=== PATIENT | female | born 1960 | race Caucasian/White ===

== ENCOUNTER 2020-04-16 13:49 | Observation (INO) | payer OTHER ==
[2020-04-16] MEDS ORDERED: ASPIRIN EC 81 MG TAB PO ONE (14:16)
[2020-04-16] MEDS ORDERED: METHYLPREDNISOLONE 125 MG INJ ONE (14:16)
[2020-04-16] MEDS ORDERED: NITROGLYCERIN 1 GM PKT TD ONE ×2 (14:16→14:32)
[2020-04-16 14:26] LABS: Basophils % 0.4 % (0-1.3); Hematocrit 37.4 % (36.0-45.0); Lymphocytes % 13.6 % (15.3-44.8); MPV 6.4 fL (7.6-11.3); RBC Red Blood Cell Count 5.05 M/uL (3.86-4.86)
[2020-04-16 14:46] LABS: ALT/SGPT 72 U/L (12-78); AST/SGOT 54 U/L (15-37); Albumin 3.5 g/dL (3.4-5.0); Alkaline Phosphatase 238 U/L (45-117); BUN Blood Urea Nitrogen 15 mg/dL (7-18); Bicarbonate 29 mmol/L (21-32); Bilirubin Direct < 0.1 mg/dL (0-0.2); Bilirubin Total 0.2 mg/dL (0.2-1.0); Glucose Level 112 mg/dL (74-106); NT PRO-BNP 59 pg/mL (<125); Potassium 3.6 mmol/L (3.5-5.1); Sodium Level 138 mmol/L (136-145); Troponin (Emerg Dept Use Only) < 0.02 ng/mL (0.0-0.045)
--- NOTE | 2020-04-16 15:10 | RAD REPORT ---
EXAM DESCRIPTION: RAD - Chest Single View - 04/16/2020 3:01 pm CLINICAL HISTORY: CHEST PAIN Chest pain. COMPARISON: No comparisons FINDINGS: Portable technique limits examination quality. The lungs are grossly clear. The heart is normal in size. No displaced fractures. IMPRESSION: No acute intrathoracic process suspected.
[2020-04-16 15:23] LABS: Protime INR 0.87
[2020-04-16] MEDS ORDERED: ACETAMINOPHEN 500 MG TAB ONE (15:38)
[2020-04-16 16:07] LABS: SARS-COV-2 RT PCR POSITIVE (NEGATIVE)
--- NOTE | 2020-04-16 16:39 | ER ---
Nurse's Notes [facility] Name: Pattie Doty Age: 59 yrs Sex: Female : 1960 Arrival Date: 04/16/2020 Time: 13:54 Bed 26 Private MD: Diagnosis: Chest pain, unspecified;Coronavirus infection, unspecified Presentation: 04/16 13:55 Acuity: SANJANA 1 ca1 Historical: - Allergies: 14:44 No Known Allergies; iw Screenin:44 Abuse screen: Denies threats or abuse. Denies injuries from another. Nutritional iw screening: No deficits noted. Tuberculosis screening: No symptoms or risk factors identified. Assessment: 13:55 Reassessment: placed in room. Carmen, RN, Zoya, RN, Ynes RN at bedside. junior Hooks at bedside. 17:22 Reassessment: pt SpO2 dropped to 88% on RA, on exertion, up to 98% after she calmed iw down, placed on 2 L NC. 19:08 Reassessment: Patient and/or family updated on plan of care and expected duration. Pain ll2 level reassessed. Patient is alert, oriented x 3, equal unlabored respirations, skin warm/dry/pink. Vital Signs: 14:22 BP 163 / 86; Pulse 127; Resp 28 S; Pulse Ox 100% on 4 lpm NC; iw 14:43 BP 125 / 72; Pulse 120; Resp 26; Pulse Ox 98% on 4 lpm NC; iw 17:00 Pulse Ox 88% on R/A; iw 17:44 BP 148 / 86; Pulse 120; Resp 24 S; Temp 98.9; Pulse Ox 99% on 2 lpm NC; iw ED Course: 13:50 Initial lab(s) drawn, by ks, sent to lab. Inserted saline lock: 20 gauge in right iw forearm, using aseptic technique. 13:54 Patient arrived in ED. ag5 13:55 Triage completed. ca1 13:59 Manav Cortez PA is PHCP. cp 13:59 Randall Ramirez MD is Attending Physician. cp 14:04 Zoya Talavera, RN is Primary Nurse. iw 15:01 XRAY Chest (1 view) In Process Unspecified. EDMS 16:38 Oscar Edge is Hospitalizing Provider. cp 16:57 CT Chest For PE Angio In Process Unspecified. EDPR 04/17 06:40 Primary Nurse role handed off by Zoya Talavera RN 08:17 Repeat lab(s) drawn. by ks, sent to lab. [facility] Administered Medications: 04/16 14:21 Drug: Nitro-Bid Ointment 2 % 1 inches Route: Transdermal; Site: anterior chest wall; iw 16:08 CANCELLED (Physician Discretion): morphine 2 mg IVP once; RASS on ADMIN: Combtv4, Very cp Agttd3, Agttd2, Rstlss1, AlertClm0, Drwsy-1, Lt Sdtn-2, Mod Sdtn-3, Dp Sdtn-4, UnArsble-5 17:00 Drug: morphine 2 mg Route: IVP; Site: right forearm; iw 17:43 CANCELLED (Physician Discretion): NS 0.9% 500 ml IV at bolus once cp 18:53 Drug: LevaQUIN 750 mg Volume: 150 ml; Route: IVPB; Infused Over: 90 mins; Site: right iw forearm; 18:53 Drug: NS 0.9% 500 ml Route: IV; Rate: bolus; Site: right forearm; iw Outcome: 16:39 Decision to Hospitalize by Provider. cp 04/17 15:25 Patient left the ED. eb Signatures: Dispatcher [employer] EDPR Zoya Talavera, RN RN Manav Calhoun PA PA cp Herrera, Deanna [facility] Sharita Berry Cheryl, RN RN ca1 Gaskin, Ajare Leah Handley RN RN ll2
--- NOTE | 2020-04-16 16:40 | EDPHYS ---
Physician Documentation [facility] [place], [place] Name: Pattie Doty Age: 59 yrs Sex: Female : 1960 Arrival Date: 04/16/2020 Time: 13:54 Bed 26 Private MD: ED Physician Randall Ramirez HPI: 04/16 14:15 This 59 yrs old Female presents to ER via Unassigned with complaints of cp Shortness Of Breath, Chest Pain. 14:15 The patient has shortness of breath at rest. Onset: The symptoms/episode began/occurred cp 1 week(s) ago. Duration: The symptoms are continuous, and are steadily getting worse. Associated signs and symptoms: Pertinent positives: chest pain, Pertinent negatives: productive cough, fever. Historical: - Allergies: 14:44 No Known Allergies; iw ROS: 14:20 Constitutional: Negative for body aches, chills, fever, poor PO intake. cp 14:20 Eyes: Negative for injury, pain, redness, and discharge. cp 14:20 ENT: Negative for ear pain, sore throat, difficulty swallowing, difficulty handling secretions. 14:20 Cardiovascular: Positive for chest pain, Negative for edema. 14:20 Respiratory: Positive for cough, "sounds productive", shortness of breath, at rest. 14:20 Abdomen/GI: Negative for abdominal pain, vomiting, diarrhea, constipation. 14:20 Back: Negative for radiated pain. 14:20 Neuro: Negative for altered mental status, headache, syncope, weakness. 14:20 All other systems are negative. Exam: 14:05 ECG was reviewed by the Attending Physician. cp 14:25 Constitutional: The patient appears alert, awake, non-diaphoretic, non-toxic, well cp developed, well nourished, in obvious distress, moderately distressed. 14:25 Head/Face: Normocephalic, atraumatic. cp 14:25 Eyes: Periorbital structures: appear normal, Pupils: equal, round, and reactive to light and accomodation, Extraocular movements: intact throughout, Conjunctiva: normal, no exudate, no injection, Sclera: no appreciated abnormality, Lids and lashes: appear normal, bilaterally. 14:25 ENT: External ear(s): are unremarkable, Nose: is normal, Mouth: Lips: moist, Oral mucosa: moist, Posterior pharynx: Airway: no evidence of obstruction, patent, swelling, is not appreciated, erythema, is not appreciated, exudate, is not appreciated. 14:25 Neck: ROM/movement: is normal, is supple, no meningismus, no nuchal rigidity. 14:25 Chest/axilla: Inspection: normal, Palpation: is normal, no crepitus, no tenderness. 14:25 Cardiovascular: Rate: tachycardic, Rhythm: regular, Pulses: Pulses are 2+ in right radial artery and left radial artery. Edema: is not appreciated, JVD: is not appreciated. 14:25 Respiratory: moderate respiratory distress is noted, Respirations: shallow respirations, that is moderate, Breath sounds: decreased breath sounds, that are mild, throughout, wheezing: is not appreciated. 14:25 Abdomen/GI: Inspection: abdomen appears normal, Bowel sounds: active, all quadrants, Palpation: abdomen is soft and non-tender, in all quadrants. 14:25 Back: pain, is absent, ROM is normal. 14:25 Neuro: Orientation: to person, place \\T\\ time. Mentation: is normal, Motor: moves all fours, strength is normal. Vital Signs: 14:22 BP 163 / 86; Pulse 127; Resp 28 S; Pulse Ox 100% on 4 lpm NC; iw 14:43 BP 125 / 72; Pulse 120; Resp 26; Pulse Ox 98% on 4 lpm NC; iw 17:00 Pulse Ox 88% on R/A; iw 17:44 BP 148 / 86; Pulse 120; Resp 24 S; Temp 98.9; Pulse Ox 99% on 2 lpm NC; iw MDM: 14:06 Patient medically screened. cp 16:25 Data reviewed: vital signs, nurses notes, lab test result(s), EKG, radiologic studies, cp plain films, and as a result, I will admit patient. 16:25 Counseling: I had a detailed discussion with the patient and/or guardian regarding: the cp historical points, exam findings, and any diagnostic results supporting the discharge/admit diagnosis, lab results, radiology results. Physician consultation: Oscar Edge was called at 16:25, was contacted at 16:25, regarding admission, to the telemetry unit. patient's condition. 04/16 14:09 Order name: Basic Metabolic Panel; Complete Time: 15:10 iw 04/16 14:09 Order name: CBC with Diff; Complete Time: 15:10 04/16 15:10 Interpretation: Normal except: RBC 5.05; HGB 11.9; MCV 74.1; MCH 23.7; MCHC 31.9; RDW cp 17.2; MPV 6.4; HONG% 79.8; LYM% 13.6. 04/16 14:09 Order name: LFT's; Complete Time: 15:10 04/16 14:09 Order name: Magnesium; Complete Time: 15:10 04/16 14:09 Order name: NT PRO-BNP; Complete Time: 15:10 04/16 14:09 Order name: PT-INR; Complete Time: 15:45 04/16 14:09 Order name: Troponin (emerg Dept Use Only); Complete Time: 15:10 04/16 14:15 Order name: Basic Metabolic Panel 04/16 14:15 Order name: CBC with Diff 04/16 14:16 Order name: Lactate; Complete Time: 17:41 04/16 14:16 Order name: Procalcitonin; Complete Time: 15:45 04/16 14:16 Order name: Blood Culture Adult (2) 04/16 14:48 Order name: CORONAVIRUS (COVID-19) : Document "Date of Symptom Onset" if Symptomatic. em1 04/16 16:07 Order name: COVID-19/FLU A+B; Complete Time: 16:16 EDAR 04/16 16:23 Order name: CRP cp 04/16 16:23 Order name: D-Dimer cp 04/16 16:23 Order name: Ferritin; Complete Time: 20:25 cp 04/16 16:23 Order name: C-Reactive Protein; Complete Time: 20:25 EDAR 04/16 21:00 Order name: Lactate Sepsis 2 HR Follow-up EDAR 04/17 08:44 Order name: CBC with Automated Diff EDAR 04/16 14:09 Order name: XRAY Chest (1 view); Complete Time: 15:45 04/16 14:09 Order name: EKG; Complete Time: 14:10 04/16 14:09 Order name: Cardiac monitoring; Complete Time: 14:22 04/16 14:09 Order name: EKG - Nurse/Tech; Complete Time: 14:22 04/16 14:09 Order name: IV Saline Lock; Complete Time: 14:22 iw 04/16 14:09 Order name: Labs collected and sent; Complete Time: 15:04 iw 04/16 14:09 Order name: O2 Per Protocol; Complete Time: 14:22 iw 04/16 14:09 Order name: O2 Sat Monitoring; Complete Time: 14:22 iw 04/16 14:15 Order name: EKG; Complete Time: 14:16 cp 04/16 14:15 Order name: Cardiac monitoring; Complete Time: 15:04 cp 04/16 14:15 Order name: EKG - Nurse/Tech; Complete Time: 14:21 04/16 14:15 Order name: IV Saline Lock; Complete Time: 14:21 04/16 14:15 Order name: Labs collected and sent; Complete Time: 14: 04/16 14:15 Order name: O2 Per Protocol; Complete Time: 14:22 04/16 14:15 Order name: O2 Sat Monitoring; Complete Time: 14: 04/16 16:23 Order name: CT Chest For PE Angio; Complete Time: 17:41 04/17 09:00 Order name: Basic Metabolic Panel EDAR 04/17 09:00 Order name: Troponin I EDAR 04/17 09:00 Order name: Lipid Profile EDAR 04/17 09:05 Order name: CBC Smear Scan EDAR 04/17 11:48 Order name: Glucose, Ancillary Testing EDMS EC:05 Rate is 123 beats/min. Rhythm is regular. [place] interval is normal. QRS interval is cp normal. QT interval is normal. T waves are Inverted in leads I, aVL. Interpreted by me. Reviewed by me. Administered Medications: 14:21 Drug: Nitro-Bid Ointment 2 % 1 inches Route: Transdermal; Site: anterior chest wall; iw 16:08 CANCELLED (Physician Discretion): morphine 2 mg IVP once; RASS on ADMIN: Combtv4, Very cp Agttd3, Agttd2, Rstlss1, AlertClm0, Drwsy-1, Lt Sdtn-2, Mod Sdtn-3, Dp Sdtn-4, UnArsble-5 17:00 Drug: morphine 2 mg Route: IVP; Site: right forearm; iw 17:43 CANCELLED (Physician Discretion): NS 0.9% 500 ml IV at bolus once cp 18:53 Drug: LevaQUIN 750 mg Volume: 150 ml; Route: IVPB; Infused Over: 90 mins; Site: right iw forearm; 18:53 Drug: NS 0.9% 500 ml Route: IV; Rate: bolus; Site: right forearm; iw Disposition: 04/17 07:02 Co-signature as Attending Physician, Randall Ramirez MD I agree with the assessment and kdr plan of care. Disposition: 04/16/20 16:39 Hospitalization ordered by Oscar Edge for Inpatient Admission. Preliminary diagnosis are Chest pain, unspecified, Coronavirus infection, unspecified. - Bed requested for [facility] ER HOLD. - Status is Inpatient Admission. eb - Condition is Stable. - Problem is new. - Symptoms have improved. Signatures: Dispatcher [employer] EDAR Meseret Douglass RN RN Randall Ramirez MD MD [facility] Zoya Talavera RN RN Phil Islas PA PA [id number] Page, Corey, PA PA cp Botello, Elizabeth Corrections: (The following items were deleted from the chart) 04/16 14:38 14:16 Chest Single View+RAD.RAD.BRZ ordered. EDMS EDMS 15:10 14:49 CORONAVIRUS ordered. EDMS EDMS 16:08 16:07 morphine 2 mg IVP once; RASS on ADMIN: Combtv4, Very Agttd3, Agttd2, Rstlss1, cp AlertClm0, Drwsy-1, Lt Sdtn-2, Mod Sdtn-3, Dp Sdtn-4, UnArsble-5 ordered. cp 16:17 14:15 Basic Metabolic Panel ordered. EDMS EDMS 16:17 14:16 HEPATIC FUNCTION+C.LAB.BRZ ordered. EDMS EDMS 16:17 14:16 MAGNESIUM+C.LAB.BRZ ordered. EDMS EDMS 16:17 14:16 PROBNP+C.LAB.BRZ ordered. EDMS EDMS 16:17 14:16 TROPONIN (EMERG DEPT USE ONLY)+C.LAB.BRZ ordered. EDMS EDMS 16:18 14:15 CBC with Automated Diff ordered. EDMS EDMS 17:12 14:16 PROTIME (+INR)+COAG.LAB.BRZ ordered. EDMS EDMS 17:13 14:16 Influenza Screen (A \\T\\ B)+BA.LAB.BRZ ordered. EDMS EDMS 17:43 17:43 NS 0.9% 500 ml IV at bolus once ordered. cp cp 19:50 16:39 Hospitalization Ordered by Oscar Edge for Inpatient Admission. Preliminary dw diagnosis is Chest pain, unspecified; Coronavirus infection, unspecified. Bed requested for Telemetry/MedSurg (Inpatient). Status is Inpatient Admission. Condition is Stable. Problem is new. Symptoms have improved. cp 04/17 15:25 04/16 19:50 04/16/2020 16:39 Hospitalization Ordered by Oscar Edge for Inpatient eb Admission. Preliminary diagnosis is Chest pain, unspecified; Coronavirus infection, unspecified. Bed requested for [facility] ER HOLD. Status is Inpatient Admission. Condition is Stable. Problem is new. Symptoms have improved. dw
--- NOTE | 2020-04-16 17:05 | RAD REPORT ---
EXAM DESCRIPTION: CT - Chest For Pe Angio - 04/16/2020 4:57 pm CLINICAL HISTORY: Chest pain. CHEST PAIN COMPARISON: No comparisons TECHNIQUE: CT angiogram of the pulmonary arteries was performed with MIP. All CT scans are performed using dose optimization technique as appropriate and may include automated exposure control or mA/KV adjustment according to patient size. FINDINGS: No evidence of pulmonary thromboembolism. No acute aortic finding demonstrated. The lungs are mildly emphysematous but clear. No significant pericardial or pleural fluid. No concerning bony finding. IMPRESSION: No evidence of pulmonary thromboembolism. Mild COPD.
[2020-04-16] MEDS ORDERED: MORPHINE 2 MG/ML SYR ONE (17:17)
[2020-04-16] MEDS ORDERED: NA CHLORIDE 0.9% 1,000 ML ONE (17:18)
--- NOTE | 2020-04-16 17:24 | P.HP ---
Certification for Inpatient Patient admitted to: Observation With expected LOS: <2 Midnights Practitioner: I am a practitioner with admitting privileges, knowledge of patient current condition, hospital course, and medical plan of care. Services: Services provided to patient in accordance with Admission requirements found in Title 42 Section 412.3 of the Code of Federal Regulations Patient History Date of Service: 04/16/20 Reason for admission: Chest pain and shortness of breath History of Present Illness: 59-year-old woman presented to the emergency department complaining of shortness of breath and chest pain. Patient described in anterior chest, onset at rest, worse with breathing. She also report intermittent nonproductive cough. Patient gives a history of coronary artery disease status post multiple stents. She denied any fever or sore throat or nasal congestion. The EKG in the emergency department demonstrated sinus tachycardia and nonspecific ST-T changes. She tested positive for COVID 19. Chest x-ray and CTA thorax were all unremarkable, no infiltrate. CTA showed no pulmonary embolus demonstrated some evidence of mild COPD. Patient was put on 3 L of oxygen by nasal cannula. She is was 100% on 4 L of oxygen in the ED. Room air saturation not checked. Patient is hospitalized for chest pain rule out. - Past Medical/Surgical History -: Coronary artery disease -: COPD -: Obesity -: Laparotomy -: Right knee surgeon - Family History Father -: Heart disease - Social History Smoking Status: Former smoker Alcohol use: No CD- Drugs: No Place of Residence: Home Review of Systems Other: Except as documented, all other systems reviewed and negative. Physical Examination - Physical Exam General: Alert, Mild distress, Obese HEENT: Mucous membr. moist/pink, EOMI, Sclerae nonicteric Neck: Supple, JVD not distended Respiratory: Normal air movement, Expiratory wheezes (Mild bilateral expiratory wheezes.) Cardiovascular: No edema, Normal S1 S2, Other (Tachycardia) Capillary refill: <2 Seconds Gastrointestinal: Soft and benign, Non-distended, No tenderness Musculoskeletal: No swelling, No tenderness Integumentary: No rashes, No cyanosis Neurological: Normal strength at 5/5 x4 extr, Cranial nerves 3-12 intact - Studies Laboratory Data (last 24 hrs) 04/16/20 14:15: PT Cancelled, INR Cancelled 04/16/20 14:15: WBC Cancelled, Hgb Cancelled, Hct Cancelled, Plt Count Cancelled 04/16/20 14:15: Sodium Cancelled, Potassium Cancelled, BUN Cancelled, Creatinine Cancelled, Glucose Cancelled, Magnesium Cancelled, Total Bilirubin Cancelled, AST Cancelled, ALT Cancelled, Alkaline Phosphatase Cancelled 04/16/20 14:13: PT 10.3, INR 0.87 04/16/20 14:13: WBC 7.00, Hgb 11.9 L, Hct 37.4, Plt Count 390 04/16/20 14:13: Sodium 138, Potassium 3.6, BUN 15, Creatinine 0.80, Glucose 112 H, Magnesium 2.0, Total Bilirubin 0.2, AST 54 H, ALT 72, Alkaline Phosphatase 238 H Assessment and Plan - Problems (Diagnosis) (1) Chest pain Current Visit: Yes Status: Acute (2) COPD with exacerbation Current Visit: Yes Status: Acute (3) Obesity Current Visit: Yes Status: Acute - Plan Place under observation. Trend troponin. Aspirin and Plavix. Vitamin-D, vitamin-C and zinc supplementation for COVID 19. IV steroids for COPD exacerbation. Bronchodilators. Collect validate and reconcile home medications. Check room air oxygen saturation. Supplemental oxygen as needed. - Advance Directives Does patient have a Living Will: No Does patient have a Durable POA for Healthcare: No
[2020-04-16] MEDS ORDERED: NA CHLORIDE 0.9% 500 ML ONE (18:54)
[2020-04-16] MEDS ORDERED: Levofloxacin 750mg IV 750 MG/150 ML BAG IV ONE (18:54)
[2020-04-16 20:17] LABS: C-Reactive Protein 29.6 mg/L (<3.00); Ferritin 10.3 ng/mL (8-388)
[2020-04-17] MEDS: INSULIN -REGULAR HUMAN 50 UNIT/0.5 ML ML SQ SCH ×2 (07:52→11:30)
[2020-04-17] MEDS ORDERED: MORPHINE 4 MG/ML SYR IV PRN (07:52)
[2020-04-17] MEDS ORDERED: NITROGLYCERIN 0.4 MG/TAB SL PRN (07:52)
[2020-04-17 08:28] VITALS: BMI 33.6
[2020-04-17 08:40] LABS: Absolute Lymphocytes (CBC) 0.5 K/uL (0.7-4.9); Basophils % 0.1 % (0-1.3); Hematocrit 33.2 % (36.0-45.0); MPV 6.6 fL (7.6-11.3); RBC Red Blood Cell Count 4.47 M/uL (3.86-4.86)
[2020-04-17 09:00] LABS: BUN Blood Urea Nitrogen 18 mg/dL (7-18); Bicarbonate 24 mmol/L (21-32); Glucose Level 223 mg/dL (74-106); HDL Cholesterol 68 mg/dL (40-60); LDL Cholesterol, Calculated 117 (<130); Potassium 3.7 mmol/L (3.5-5.1); Sodium Level 139 mmol/L (136-145); Troponin I < 0.02 ng/mL (0.0-0.045)
[2020-04-17] MEDS ORDERED: ENOXAPARIN 40 MG/0.4 ML SQ SCH (09:00)
[2020-04-17] MEDS ORDERED: VITAMIN D 5,000 UNIT CAP PO SCH (09:00)
[2020-04-17] MEDS ORDERED: ASPIRIN EC 81 MG TAB PO SCH (09:00)
[2020-04-17] MEDS ORDERED: ZINC SULFATE 220 MG CAP PO SCH (09:00)
[2020-04-17] MEDS: ASCORBIC ACID 500 MG TABLET PO SCH ×2 (09:00→09:01)
[2020-04-17 09:05] LABS: Blood Morphology Comment NOT SEEN (NOT SEEN); Platelet Estimate ADEQ; White Blood Cell Scan OK (OK)
[2020-04-17] MEDS ORDERED: ALBUTEROL INHALER 60 PUFF/8 GM IH PRN (09:12)
[2020-04-17] MEDS ORDERED: ASPIRIN 81 MG CHEWABLE TABLET ONE (09:15)
[2020-04-17] MEDS ORDERED: ENOXAPARIN 40 MG/0.4 ML SQ ONE (09:16)
[2020-04-17] MEDS ORDERED: ZINC SULFATE 220 MG CAP ONE (09:16)
[2020-04-17] MEDS ORDERED: ASPIRIN EC 81 MG TAB PO ONE (09:16)
[2020-04-17] MEDS ORDERED: ASCORBIC ACID 500 MG TABLET ONE (09:16)
[2020-04-17] MEDS ORDERED: VITAMIN D 1000 UNIT TAB ONE (09:16)
[2020-04-17] MEDS: IPRATROPIUM 200 PUFF/12.9 GM INH IH SCH ×2 (10:32→12:50)
--- NOTE | 2020-04-17 11:06 | EKG ---
Test Date: 2020-04-16 Test Time: 13:57:22 Solution Lead: ELSI MEASUREMENT RESULTS: Intervals: Rate: 123 ID: [id number] QRSD: 86 QT: 328 QTc: 469 [place]: P: 80 ID: [id number] QRS: 46 T: 97 INTERPRETIVE STATEMENTS: Sinus tachycardia Nonspecific ST abnormality Abnormal ECG No previous ECG available for comparison Electronically Signed On 04-17-20 11:05:07 PATTERN SCRATCHER by Hao Olivera
[2020-04-17] MEDS ORDERED: INSULIN -REGULAR HUMAN 50 UNIT/0.5 ML ML ONE (12:45)
--- NOTE | 2020-04-17 13:13 | P.DS ---
Admission Date: 04/16/20 Discharge Date: 04/17/20 Disposition: ROUTINE DISCHARGE Discharge Condition: FAIR Reason for Admission: Chest pain and shortness of breath - Problems (1) Chest pain Current Visit: Yes Status: Acute (2) COPD with exacerbation Current Visit: Yes Status: Acute (3) Obesity Current Visit: Yes Status: Acute (4) COVID-19 virus infection Current Visit: Yes Status: Acute Brief History of Present Illness: 59-year-old woman presented to the emergency department complaining of shortness of breath and chest pain. Patient described in anterior chest, onset at rest, worse with breathing. She also report intermittent nonproductive cough. Patient gives a history of coronary artery disease status post multiple stents. She denied any fever or sore throat or nasal congestion. The EKG in the emergency department demonstrated sinus tachycardia and nonspecific ST-T changes. She tested positive for COVID 19. Chest x-ray and CTA thorax were all unremarkable, no infiltrate. CTA showed no pulmonary embolus demonstrated some evidence of mild COPD. Patient was put on 3 L of oxygen by nasal cannula. She is was 100% on 4 L of oxygen in the ED. Room air saturation not checked. Patient is hospitalized for chest pain rule out. Hospital Course: Patient was placed under observation. Her troponin trended negative. Patient was seen COPD exacerbation which was treated with IV steroid, scheduled inhalers. Of note patient tested positive for COVID 19. Her chest x-ray did not show any infiltrate. She has chronic respiratory failure on home oxygen. Patient was maintained on 2 to 3 L during the hospital stay. ACS has been ruled out. Patient is deemed clinically stable for discharge. She is prescribed vitamin-D, vitamin-C and zinc supplementation. She will follow with Dr. Arriola within 1 week. General: Alert, In no apparent distress, Oriented x3 HEENT: Mucous membr. moist/pink Respiratory: Diminished Cardiovascular: Regular rate/rhythm, Normal S1 S2 Gastrointestinal: Soft and benign, Non-distended Musculoskeletal: No swelling Integumentary: No rashes Neurological: Normal strength at 5/5 x4 extr Laboratory Data at Discharge: WBC 6.40 K/uL (4.3-10.9) 04/17/20 08:17 Hgb 10.5 g/dL (12.0-15.0) L 04/17/20 08:17 Hct 33.2 % (36.0-45.0) L 04/17/20 08:17 Plt Count 384 K/uL (152-406) 04/17/20 08:17 PT Cancelled 04/16/20 14:15 INR Cancelled 04/16/20 14:15 Sodium 139 mmol/L (136-145) 04/17/20 08:17 Potassium 3.7 mmol/L (3.5-5.1) 04/17/20 08:17 BUN 18 mg/dL (7-18) 04/17/20 08:17 Creatinine 1.04 mg/dL (0.55-1.3) 04/17/20 08:17 Glucose 223 mg/dL (74-106) H 04/17/20 08:17 Magnesium Cancelled 04/16/20 14:15 Total Bilirubin Cancelled 04/16/20 14:15 AST Cancelled 04/16/20 14:15 ALT Cancelled 04/16/20 14:15 Alkaline Phosphatase Cancelled 04/16/20 14:15 Troponin I < 0.02 ng/mL (0.0-0.045) 04/17/20 08:17 Triglycerides 70 mg/dL (<150) 04/17/20 08:17 Cholesterol 199 mg/dL (<200) 04/17/20 08:17 HDL Cholesterol 68 mg/dL (40-60) H 04/17/20 08:17 Cholesterol/HDL Ratio 2.93 04/17/20 08:17 Home Medications: Albuterol Neb [Proventil 0.083% Neb Soln] 2.5 mg IH TID 04/17/20 Amitriptyline [Elavil*] 1 tab PO DAILY 04/17/20 Amlodipine [Norvasc*] 1 tab PO DAILY 04/17/20 Ascorbic Acid [Vitamin C*] 2,000 mg PO BID #120 tablet 04/17/20 Atorvastatin Calcium [Lipitor*] 20 mg PO DAILY 04/17/20 Clopidogrel Bisulfate [Plavix*] 1 tab PO DAILY 04/17/20 Dicyclomine [Bentyl*] 1 tab PO DAILY 04/17/20 Isosorbide Mononitrate [Isosorbide Mononitrate ER] 1 tab PO DAILY 04/17/20 Losartan/Hydrochlorothiazide [Losartan-Hctz 100-25 mg Tab] 1 tab PO DAILY 04/17/20 Pantoprazole Sodium [Protonix] 1 tab PO DAILY 04/17/20 Zinc Sulfate [Zinc Sulfate*] 220 mg PO DAILY #30 cap 04/17/20 New Medications: Ascorbic Acid [Vitamin C*] 2,000 mg PO BID #120 tablet Zinc Sulfate [Zinc Sulfate*] 220 mg PO DAILY #30 cap Followup: Mo Haywood MD [ACTIVE - CAN ADMIT] - 1 Week Jered Delgado DO [Primary Care Provider] -
[2020-04-17 14:23] VITALS: O2SAT 98
[2020-04-17 15:04] VITALS: BP 154/92; TEMP 97.7
[2020-04-17] MEDS ORDERED: DULERA 100/5 (MOMETASONE/FORMOTEROL) INHALER IH SCH (21:00)
== END 2020-04-17 15:20 | disposition home or self-care (01) ==
LOC: ER 13:49 → ERHOLD 16:56
PROVIDERS: ADMIT Internal Medicine; ATTEND Internal Medicine
DX: R07.9 Chest pain, unspecified (principal); U07.1 COVID-19; J44.1 Chronic obstructive pulmonary disease with (acute) exacerbation; J96.10 Chronic respiratory failure, unspecified whether with hypoxia or hypercapnia; I25.10 Atherosclerotic heart disease of native coronary artery without angina pectoris; E66.9 Obesity, unspecified; Z68.33 Body mass index [BMI] 33.0-33.9, adult; Z87.891 Personal history of nicotine dependence; Z95.5 Presence of coronary angioplasty implant and graft; Z99.81 Dependence on supplemental oxygen; Z79.02 Long term (current) use of antithrombotics/antiplatelets; Z82.49 Family history of ischemic heart disease and other diseases of the circulatory system
CPT/HCPCS: 93005; 87040 ×2; 85025 ×2; 80048 ×2; 36415; 83735; 85610; 80061; 82947; 85379; 80076; 83605 ×2; 84484 ×2; 82728; 84145; 83880; 0240U; 86140; 71275; 71045; 96375; 96374; 99291; 99292; Q9967; J1650; J2270; J7606; J7040; J7030; J2930

== ENCOUNTER 2020-04-21 04:47 | Inpatient (IN) | payer OTHER ==
[2020-04-21] MEDS ORDERED: ALBUTEROL INHALER 60 PUFF/8 GM IH ONE (05:19)
[2020-04-21] MEDS ORDERED: METHYLPREDNISOLONE 125 MG INJ ONE (05:19)
[2020-04-21 05:20] LABS: Absolute Lymphocytes (CBC) 1.3 K/uL (0.7-4.9); Basophils % 0.4 % (0-1.3); Hematocrit 34.1 % (36.0-45.0); Lymphocytes % 25.6 % (15.3-44.8); MPV 6.3 fL (7.6-11.3); RBC Red Blood Cell Count 4.68 M/uL (3.86-4.86)
[2020-04-21] MEDS ORDERED: MAGNESIUM SULFATE 1 gm IVPB 1 GM/100 ML BAG IV ONE (05:32)
[2020-04-21] MEDS ORDERED: IBUPROFEN 400 MG TAB ONE (05:37)
[2020-04-21 05:47] LABS: ALT/SGPT 50 U/L (12-78); AST/SGOT 28 U/L (15-37); Albumin 3.3 g/dL (3.4-5.0); Alkaline Phosphatase 182 U/L (45-117); BUN Blood Urea Nitrogen 17 mg/dL (7-18); Bicarbonate 28 mmol/L (21-32); Bilirubin Direct < 0.1 mg/dL (0-0.2); Bilirubin Total 0.3 mg/dL (0.2-1.0); Glucose Level 100 mg/dL (74-106); Potassium 3.2 mmol/L (3.5-5.1); Protein, Total 7.6 g/dL (6.4-8.2); Sodium Level 138 mmol/L (136-145)
[2020-04-21] MEDS ORDERED: ONDANSETRON 4 MG/2 ML VIAL ONE (05:55)
--- NOTE | 2020-04-21 06:27 | ER ---
Nurse's Notes [facility] Name: Pattie Doty Age: 59 yrs Sex: Female : 1960 Arrival Date: 04/21/2020 Time: 04:48 Bed 19 Private MD: Jered Delgado Diagnosis: Chronic obstructive pulmonary disease with (acute) exacerbation;Chronic obstructive pulmonary disease with acute lower respiratory infection;Coronavirus infection, unspecified Presentation: 04/21 04:55 Ebola Screen: No symptoms or risks identified at this time. ea 04:58 Chief complaint: Patient states: pt reports shortness of breath, discharged on Monday em with covid, reports cough, fever and nausea. Coronavirus screen: cough unrelated to allergies, fever, shortness of breath, Client presents with at least one sign or symptom that may indicate coronavirus-19. Standard/surgical mask placed on the client. Provider contacted for isolation considerations. Initial Sepsis Screen: Does the patient meet any 2 criteria? RR > 20 per min. Temp <36.0*C (96.8*F)) or > 38.3*C (100.9*F). HR > 90 bpm. Does the patient have a suspected source of infection? No. Patient's initial sepsis screen is negative. If YES to both, name of provider notified: Job Arias MD. Risk Assessment: Do you want to hurt yourself or someone else? Patient reports no desire to harm self or others. Onset of symptoms was April 21, 2020. 04:58 Method Of Arrival: Wheelchair em 04:58 Acuity: SANJANA 2 em Triage Assessment: 04:58 General: Appears distressed, uncomfortable, Behavior is cooperative. Pain: Complains of em pain in back. Respiratory: Reports shortness of breath Onset: The symptoms/episode began/occurred 2 days ago, the patient has moderate shortness of breath. Derm: Skin is clammy, Skin is pale, Skin temperature is hot. Musculoskeletal: Range of motion: intact in all extremities. Historical: - Allergies: 05:07 Lisinopril; em 05:07 Codeine; em 05:07 Hydrocodone-Acetaminophen; em 05:08 flu shot; em 05:08 Tetanus Immune Globulin; em - PMHx: 05:08 COPD; Hypertension; em - Immunization history:: Adult Immunizations up to date. - Social history:: Smoking status: unknown. - Family history:: not pertinent. - Hospitalizations: : The patient was recently seen at [facility]. Screenin:55 Abuse screen: Denies threats or abuse. Nutritional screening: No deficits noted. ea Tuberculosis screening: No symptoms or risk factors identified. 05:30 Fall Risk IV access (20 points). Mental Status- Oriented to own ability (0 pts). Total rr5 Khoury Fall Scale indicates No Risk (0-24 pts). Assessment: 04:55 General: Appears distressed, uncomfortable, Behavior is Reports fever for feeling ill rr5 for fatigue for. Pain: Denies pain. Neuro: Level of Consciousness is awake, alert, obeys commands, Oriented to person, place, time. Cardiovascular: Capillary refill < 3 seconds Patient's skin is warm and dry. Rhythm is sinus tachycardia. Respiratory: Reports shortness of breath cough that is air hunger Airway is patent Respiratory effort is labored, pursed lip, Respiratory pattern is tachypnea Breath sounds with wheezes. GI: Reports nausea. : No signs and/or symptoms were reported regarding the genitourinary system. EENT: No signs and/or symptoms were reported regarding the EENT system. 04:55 Derm: Skin is intact, Skin temperature is warm. Musculoskeletal: Capillary refill < 3 rr5 seconds. 05:50 Reassessment: Patient appears in no apparent distress at this time. changed to high rr5 flow 30 liters 40%. 06:09 Reassessment: Patient and/or family updated on plan of care and expected duration. Pain ea level reassessed. Pt alert and oriented x 3. Remains on high flow O2 per nasal cannula, pt tolerating well. 06:50 Reassessment: Patient appears in no apparent distress at this time. Patient is alert, rr5 oriented x 3, equal unlabored respirations, skin warm/dry/pink. Patient states feeling better. Patient states symptoms have improved. 07:00 Reassessment: RECD REPORT FROM PROSPER DELA CRUZ. 59YO WF P/W SOB AND FEVER, + COVID. ADMIT bp INITIATED. 09:00 Reassessment: No changes from previously documented assessment. Patient and/or family bp updated on plan of care and expected duration. Pain level reassessed. ADMIT IN PROCESS. 11:00 Reassessment: NO BED AVAILABLE. PT CHANGED TO ER HOLD. SEE MEDITECH. bp Vital Signs: 04:58 BP 180 / 105; Pulse 133; Resp 42; Temp 101.9(O); Pulse Ox 100% on R/A; Pain 10/10; em 05:15 BP 159 / 93; Pulse 114; Resp 39; Pulse Ox 99% on 2 lpm NC; rr5 05:40 Weight 86.18 kg; Height 5 ft. 3 in. (160.02 cm); rr5 06:00 BP 146 / 76; Pulse 101; Resp 20; Pulse Ox 98% on NC; ea 06:56 BP 134 / 71; Pulse 98; Resp 20; Temp 99.5; Pulse Ox 99% ; rr5 09:00 BP 127 / 69; Pulse 89; Resp 18; Pulse Ox 98% ; bp 11:00 BP 141 / 73; Pulse 92; Resp 19; Pulse Ox 93% ; bp 05:40 Body Mass Index 33.66 (86.18 kg, 160.02 cm) rr5 06:00 pt on high flow O2 ea 06:56 on high flow O2 rr5 ED Course: 04:48 Patient arrived in ED. am2 04:49 Jered Delgado DO is Private Physician. am2 04:52 Prosper Myles RN is Primary Nurse. rr5 04:55 Job Arias MD is Attending Physician. rn 04:55 library monitor on. Pulse ox on. NIBP on. rr5 04:55 Oxygen administration via nasal cannula \T\ 2L/min Response to oxygen therapy: symptoms rr5 improved. 04:56 Patient has correct armband on for positive identification. Bed in low position. Call ea light in reach. 05:00 Arm band placed on right wrist. Patient placed in an exam room, on a stretcher, on ea oxygen, on monitor tech, on pulse oximetry. 05:00 Inserted saline lock: 20 gauge in right forearm, using aseptic technique. ,using rr5 aseptic technique. inserted by esthela DELA CRUZ Blood collected. 05:01 Triage completed. em 05:14 EKG done, by ED staff, reviewed by Job Arias MD. rr5 05:16 CXR XRAY In Process Unspecified. EDMS 06:26 Vasquez Pelaez DO is Hospitalizing Provider. rn 07:13 Primary Nurse role handed off by Prosper Myles, RN rr5 07:27 Robel Jordan, RN is Primary Nurse. bp 11:10 No provider procedures requiring assistance completed. Patient admitted, IV remains in bp place. 04/22 07:20 Primary Nurse role handed off by Robel Jordan RN bd 04/23 07:02 Inna Stone, RN is Primary Nurse. ph Administered Medications: 04/21 05:02 Drug: SOLU-Medrol 125 mg Route: IVP; Site: right forearm; rr5 06:48 Follow up: Response: No adverse reaction ea 05:07 Drug: Albuterol HFA Inhaler 4 puffs Route: Inhalation; rr5 05:19 Drug: Magnesium Sulfate 1 grams Route: IVPB; Infused Over: 1 hrs; Site: right forearm; rr5 06:48 Follow up: Response: No adverse reaction; IV Status: Completed infusion ea 05:20 Drug: Motrin 800 mg Route: PO; rr5 06:48 Follow up: Response: No adverse reaction ea 05:42 Drug: Zofran (Ondansetron) 4 mg Route: IVP; Site: right forearm; rr5 06:48 Follow up: Response: No adverse reaction ea 06:50 Follow up: Response: No adverse reaction rr5 Outcome: 06:27 Decision to Hospitalize by Provider. rn 11:11 Admitted to ER Hold. Please see [facility] for further documentation. bp 11:11 Condition: stable 11:11 Instructed on the need for admit. 04/23 14:36 Patient left the ED. ph Signatures: Dispatcher [employer] EDMS Juliet Roberts Edgar, RN Job Morse MD MD rn Hall, Patricia, RN RN [place] [id number] Esthela Menjivar RN RN ea Peltier, Brian, RN RN bp Roque, Raymond, RN RN rr5 Corrections: (The following items were deleted from the chart) 04/21 06:57 06:56 BP 134 / 71; Pulse 98bpm; Resp 20bpm; Pulse Ox 99%; Temp 99.5F; rr5 rr5
--- NOTE | 2020-04-21 06:28 | EDPHYS ---
Physician Documentation [facility] Name: Pattie Doty Age: 59 yrs Sex: Female : 1960 Arrival Date: 04/21/2020 Time: 04:48 Bed 19 Private MD: Danny Jered ED Physician Job Arias HPI: 04/21 05:01 This 59 yrs old Female presents to ER via Wheelchair with complaints of rn Shortness Of Breath, Breathing Difficulty, covid+. 05:01 The patient has shortness of breath at rest, with light activity. Onset: The rn symptoms/episode began/occurred yesterday. Duration: The symptoms are continuous. The patient's shortness of breath is aggravated by coughing, exertion, light activity, talking, walking. Associated signs and symptoms: Pertinent positives: productive cough, fever, Pertinent negatives: hemoptysis. Severity of symptoms: At their worst the symptoms were moderate in the emergency department the symptoms are unchanged. The patient has experienced similar episodes in the past. The patient has been recently been admitted at [facility]. Reports diagnosed with COVID several days ago, discharged from this hospital 3 days ago, usually on 2 L NC at home 2/2 COPD, now with increased dyspnea and worsening cough. . Historical: - Allergies: 05:07 Lisinopril; em 05:07 Codeine; em 05:07 Hydrocodone-Acetaminophen; em 05:08 flu shot; em 05:08 Tetanus Immune Globulin; em - PMHx: 05:08 COPD; Hypertension; em - Immunization history:: Adult Immunizations up to date. - Social history:: Smoking status: unknown. - Family history:: not pertinent. - Hospitalizations: : The patient was recently seen at [facility]. ROS: 05:04 Constitutional: + fever and chills Eyes: Negative for injury, pain, redness, and admitted attorneys, Neck: Negative for injury, pain, and swelling, Cardiovascular: Negative for chest pain, palpitations, and edema, Respiratory: cough and sob Abdomen/GI: Negative for abdominal pain, nausea, vomiting, diarrhea, and constipation, Back: Negative for injury and pain, MS/Extremity: Negative for injury and deformity, Skin: Negative for injury, rash, and discoloration, Neuro: Negative for numbness, tingling, and seizure. Exam: 05:04 Constitutional: Overweight patient, + moderate tachypnea, 3 word sentences Head/Face: rn Normocephalic, atraumatic. ENT: dry MM, no stridor Cardiovascular: Tachycardic, regular Respiratory: + moderate tachypnea, + retractions Abdomen/GI: soft, non-tender Skin: Warm, dry MS/ Extremity: Pulses equal, no cyanosis. Neuro: Awake and alert, GCS 15 Vital Signs: 04:58 BP 180 / 105; Pulse 133; Resp 42; Temp 101.9(O); Pulse Ox 100% on R/A; Pain 10/10; em 05:15 BP 159 / 93; Pulse 114; Resp 39; Pulse Ox 99% on 2 lpm NC; rr5 05:40 Weight 86.18 kg; Height 5 ft. 3 in. (160.02 cm); rr5 06:00 BP 146 / 76; Pulse 101; Resp 20; Pulse Ox 98% on NC; ea 06:56 BP 134 / 71; Pulse 98; Resp 20; Temp 99.5; Pulse Ox 99% ; rr5 09:00 BP 127 / 69; Pulse 89; Resp 18; Pulse Ox 98% ; bp 11:00 BP 141 / 73; Pulse 92; Resp 19; Pulse Ox 93% ; bp 05:40 Body Mass Index 33.66 (86.18 kg, 160.02 cm) rr5 06:00 pt on high flow O2 ea 06:56 on high flow O2 rr5 MDM: 04:55 Patient medically screened. rn 06:23 Differential diagnosis: Chronic Obstructive Pulmonary Disease pneumonia, pulmonary rn edema, reactive airway disease, Sepsis. Data reviewed: vital signs, nurses notes, lab test result(s), EKG, radiologic studies, plain films, and as a result, I will admit patient. Counseling: I had a detailed discussion with the patient and/or guardian regarding: the historical points, exam findings, and any diagnostic results supporting the discharge/admit diagnosis, lab results, radiology results, the need for further work-up and treatment in the hospital. Response to treatment: the patient's symptoms have mildly improved after treatment, and as a result, I will admit patient. Admission orders: after a detailed discussion of the patient's condition and case, the admit orders are written by me. ED course: Pt with some improvement after steroids and albuterol/magnesium, CXR clear of large infiltrate, will admit to Dr. Pelaez given COPD exacerbation, recent admission and bounceback, and work of breathing with increased oxygen requirement. . 04/21 05:00 Order name: Blood Culture Adult (2) rn 04/21 05:00 Order name: BMP rn 04/21 05:00 Order name: C-Reactive Protein rn 04/21 05:00 Order name: CBC with Diff rn 04/21 05:00 Order name: Ferritin rn 04/21 05:00 Order name: Lactate; Complete Time: 05:53 rn 04/21 05:00 Order name: LFT's; Complete Time: 05:53 rn 04/21 05:00 Order name: Procalcitonin rn 04/21 05:01 Order name: Blood Culture EDMS 04/21 05:01 Order name: Basic Metabolic Panel; Complete Time: 05:53 EDMS 04/21 05:01 Order name: C-Reactive Protein; Complete Time: 05:53 EDMS 04/21 05:01 Order name: CBC with Automated Diff; Complete Time: 05:46 EDMS 04/21 05:01 Order name: Ferritin; Complete Time: 05:53 EDMS 04/21 16:46 Order name: Glucose, Ancillary Testing EDMS 04/21 05:00 Order name: CXR XRAY rn 04/22 07:12 Order name: CBC with Automated Diff EDMS 04/22 07:31 Order name: Basic Metabolic Panel EDMS 04/22 07:31 Order name: C-Reactive Protein EDMS 04/22 07:31 Order name: Magnesium EDMS 04/22 07:31 Order name: Ferritin EDMS 04/22 07:33 Order name: Manual Differential EDMS 04/22 09:13 Order name: RAD EDMS 04/22 10:35 Order name: ABG Arterial Blood Gas EDMS 04/23 06:00 Order name: Basic Metabolic Panel EDMS 04/23 06:00 Order name: C-Reactive Protein EDMS 04/23 06:00 Order name: Magnesium EDMS 04/23 06:00 Order name: Ferritin EDMS 04/23 10:58 Order name: RAD EDMS 04/21 05:00 Order name: EKG; Complete Time: 05:02 rn 04/21 05:00 Order name: Cardiac monitoring; Complete Time: 05:13 rn 04/21 05:00 Order name: Droplet/Contact Precautions; Complete Time: 05: rn 04/21 05:00 Order name: EKG - Nurse/Tech; Complete Time: 05:13 rn 04/21 05:00 Order name: IV Start; Complete Time: 05:14 rn 04/21 05:00 Order name: Labs collected and sent; Complete Time: 05:13 rn 04/21 05:00 Order name: O2 Per Protocol; Complete Time: 05: rn 04/21 05:00 Order name: O2 Sat Monitoring; Complete Time: 05: rn 04/21 06:34 Order name: Oxygen; Complete Time: 06:47 rr5 Administered Medications: 05:02 Drug: SOLU-Medrol 125 mg Route: IVP; Site: right forearm; rr5 06:48 Follow up: Response: No adverse reaction ea 05:07 Drug: Albuterol HFA Inhaler 4 puffs Route: Inhalation; rr5 05:19 Drug: Magnesium Sulfate 1 grams Route: IVPB; Infused Over: 1 hrs; Site: right forearm; rr5 06:48 Follow up: Response: No adverse reaction; IV Status: Completed infusion ea 05:20 Drug: Motrin 800 mg Route: PO; rr5 06:48 Follow up: Response: No adverse reaction ea 05:42 Drug: Zofran (Ondansetron) 4 mg Route: IVP; Site: right forearm; rr5 06:48 Follow up: Response: No adverse reaction ea 06:50 Follow up: Response: No adverse reaction rr5 Disposition: 06:23 Critical Care:. rn Disposition: 04/21/20 06:27 Hospitalization ordered by Vasquez Pelaez for Inpatient Admission. Preliminary diagnosis are Chronic obstructive pulmonary disease with (acute) exacerbation, Chronic obstructive pulmonary disease with acute lower respiratory infection, Coronavirus infection, unspecified. - Bed requested for Telemetry/MedSurg (Inpatient). - Status is Inpatient Admission. ph - Condition is Stable. - Problem is an ongoing problem. - Symptoms have improved. Critical care time excluding procedures: 06:23 Critical care time: Bedside Care: 25 minutes, Consultation: 5 minutes. Total time: 30 rn minutes Signatures: Dispatcher [employer] Augusta Ramos RN RN sv Munoz, Edgar, RN RN em Nieto, Roman, MD MD rn Hall, Patricia, RN RN ph Nikki, Robel, RN RN bp Alex Myles, RN RN rr5 Leah Macias, RN RN ll2 Esthela Menjivar RN, ea Corrections: (The following items were deleted from the chart) 05:04 05:04 Constitutional: + fever and chills Eyes: Negative for injury, pain, redness, and admitted attorneys, Neck: Negative for injury, pain, and swelling, Cardiovascular: Negative for chest pain, palpitations, and edema, Respiratory: cough and sob Abdomen/GI: Negative for abdominal pain, nausea, vomiting, diarrhea, and constipation, MS/Extremity: Negative for injury and deformity, Skin: Negative for injury, rash, and discoloration, Neuro: Negative for numbness, tingling, and seizure, rn 11:12 06:27 Hospitalization Ordered by Vasquez Pelaez DO for Inpatient Admission. Preliminary bp diagnosis is Chronic obstructive pulmonary disease with (acute) exacerbation; Chronic obstructive pulmonary disease with acute lower respiratory infection; Coronavirus infection, unspecified. Bed requested for Telemetry/MedSurg (Inpatient). Status is Inpatient Admission. Condition is Stable. Problem is an ongoing problem. Symptoms have improved. rn 04/23 13:36 04/21 11:12 04/21/2020 06:27 Hospitalization Ordered by Vasquez Pelaez DO for Inpatient sv Admission. Preliminary diagnosis is Chronic obstructive pulmonary disease with (acute) exacerbation; Chronic obstructive pulmonary disease with acute lower respiratory infection; Coronavirus infection, unspecified. Bed requested for [facility] ER HOLD. Status is Inpatient Admission. Condition is Stable. Problem is an ongoing problem. Symptoms have improved. bp 04/23 14:36 13:36 04/21/2020 06:27 Hospitalization Ordered by Vasquez Pelaez DO for Inpatient ph Admission. Preliminary diagnosis is Chronic obstructive pulmonary disease with (acute) exacerbation; Chronic obstructive pulmonary disease with acute lower respiratory infection; Coronavirus infection, unspecified. Bed requested for Telemetry/MedSurg (Inpatient). Status is Inpatient Admission. Condition is Stable. Problem is an ongoing problem. Symptoms have improved. sv
[2020-04-21] MEDS: METHYLPREDNISOLONE 125 MG INJ IV SCH ×2 (11:12→17:00)
[2020-04-21] MEDS: THIAMINE HCL 100 MG TABLET PO SCH ×2 (11:12→20:03)
[2020-04-21] MEDS: VITAMIN D 1000 UNIT TAB PO SCH (11:12)
[2020-04-21] MEDS: FAMOTIDINE 20 MG TAB PO SCH ×2 (11:12→20:04)
[2020-04-21] MEDS: ARFORMOTEROL TARTRATE 15 MCG/2 ML VIAL.NEB NEB SCH ×2 (11:12→20:00)
[2020-04-21] MEDS: ASCORBIC ACID 500 MG TABLET PO SCH ×3 (11:12→20:04)
[2020-04-21] MEDS: ZINC SULFATE 220 MG CAP PO SCH (11:12)
[2020-04-21] MEDS: ENOXAPARIN 40 MG/0.4 ML SQ SCH (11:12)
[2020-04-21 11:16] VITALS: BMI 33.6
--- NOTE | 2020-04-21 12:53 | EKG ---
Test Date: 2020-04-21 Test Time: 05:09:44 Director Trade: RR MEASUREMENT RESULTS: Intervals: Rate: 112 MN: 132 QRSD: 96 QT: 356 QTc: 485 [place]: P: 82 MN: 132 QRS: 52 T: 72 INTERPRETIVE STATEMENTS: Sinus tachycardia Cannot rule out Anterior infarct, age undetermined Abnormal ECG Compared to ECG 04/16/2020 13:57:22 Myocardial infarct finding now present ST (T wave) deviation no longer present Electronically Signed On 04-21-20 12:53:03 AUTOMATIC ENGRAVER by Hao Olivera
[2020-04-21] MEDS ORDERED: ZINC SULFATE 220 MG CAP ONE (12:59)
[2020-04-21] MEDS ORDERED: VITAMIN D 1000 UNIT TAB ONE (12:59)
[2020-04-21] MEDS ORDERED: ASCORBIC ACID 500 MG TABLET ONE ×3 (12:59→20:04)
[2020-04-21] MEDS ORDERED: THIAMINE HCL 100 MG TABLET ONE ×2 (12:59→20:03)
[2020-04-21] MEDS ORDERED: FAMOTIDINE 20 MG TAB ONE ×2 (13:00→20:04)
[2020-04-21] MEDS ORDERED: METHYLPREDNISOLONE 40 MG INJ ONE ×2 (13:00→17:06)
[2020-04-21] MEDS ORDERED: ENOXAPARIN 40 MG/0.4 ML SQ ONE (13:00)
--- NOTE | 2020-04-21 13:49 | P.HP ---
Certification for Inpatient Patient admitted to: Inpatient With expected LOS: >2 Midnights Patient will require the following post-hospital care: None Practitioner: I am a practitioner with admitting privileges, knowledge of patient current condition, hospital course, and medical plan of care. Services: Services provided to patient in accordance with Admission requirements found in Title 42 Section 412.3 of the Code of Federal Regulations Patient History Date of Service: 04/21/20 Primary Care Provider: Dr. Delgado; Pulmonary-Dr. Haywood Reason for admission: SOB History of Present Illness: 59-year-old female with history of hypertension, hyperlipidemia and COPD. Patient recently hospitalized for COVID pneumonia. Patient was discharged on 04/17/2020. Patient reported she was sent home with home oxygen. Patient continue to have increasing shortness of breath. Patient reported some fever and chills. Her symptoms did not improve. Patient denied any significant chest pain. She came to the ER for further evaluation. In the ER patient had significant tachypnea and hypoxia. Patient was placed on high-flow oxygen with improvement. Patient given IV steroid and magnesium. Patient stabilize. Pro calcitonin negative. Lactic acid normal. Ferritin 36. CRP 37. Sodium 138, potassium 3.2. Being of 17, creatinine 0.85 with a GFR 68. Patient admitted for further evaluation and treatment. Allergies codeine Allergy (Verified 04/17/20 12:07) Anaphylaxis hydralazine Allergy (Verified 04/17/20 12:07) Anaphylaxis hydrocodone Allergy (Verified 04/17/20 12:07) Anaphylaxis influenza A (H1N1) virus vaccine m-sonia-split 2008 [From influenza A (H1N1)] Allergy (Verified 04/17/20 12:07) Anaphylaxis tetanus immune globulin Allergy (Verified 04/17/20 12:07) Anaphylaxis lisinopril Adverse Reaction (Verified 04/17/20 12:07) COUGH Home medications list reviewed: Yes Home Medications: Albuterol Neb [Proventil 0.083% Neb Soln] 2.5 mg IH TID 04/17/20 Amitriptyline [Elavil*] 1 tab PO DAILY 04/17/20 Amlodipine [Norvasc*] 1 tab PO DAILY 04/17/20 Ascorbic Acid [Vitamin C*] 2,000 mg PO BID #120 tablet 04/17/20 Atorvastatin Calcium [Lipitor*] 20 mg PO DAILY 04/17/20 Clopidogrel Bisulfate [Plavix*] 1 tab PO DAILY 04/17/20 Dicyclomine [Bentyl*] 1 tab PO DAILY 04/17/20 Isosorbide Mononitrate [Isosorbide Mononitrate ER] 1 tab PO DAILY 04/17/20 Losartan/Hydrochlorothiazide [Losartan-Hctz 100-25 mg Tab] 1 tab PO DAILY Pantoprazole Sodium [Protonix] 1 tab PO DAILY 04/17/20 Zinc Sulfate [Zinc Sulfate*] 220 mg PO DAILY #30 cap 04/17/20 predniSONE [Prednisone*] 20 mg PO DAILY #7 tab 04/17/20 - Past Medical/Surgical History Has patient received pneumonia vaccine in the past: No Diabetic: No -: Coronary artery disease -: COPD -: HTN -: Laparotomy -: Right knee surgeon Psychosocial/ Personal History: lives with son - Family History Father -: Heart disease - Social History Smoking Status: Never smoker Alcohol use: No CD- Drugs: No Place of Residence: Home Review of Systems General: Fever, Chills Eyes: Unremarkable ENT: Unremarkable Respiratory: Shortness of Breath, SOB with Excertion, As per HPI Cardiovascular: Unremarkable Gastrointestinal: Unremarkable Genitourinary: Unremarkable Musculoskeletal: Unremarkable Integumentary: Unremarkable Neurological: Unremarkable Lymphatics: Unremarkable Physical Examination - Vital Signs Blood Pressure: 141/73 Pulse: 94 Respirations: 21 Pulse Ox (%): 93 - Physical Exam General: Alert, Oriented x3, Cooperative, Other (Patient on high-flow oxygen) HEENT: Atraumatic Neck: Supple Respiratory: Other (Patient on high-flow oxygen. Slight tachypnea noted. Overall stable) Cardiovascular: Normal pulses Gastrointestinal: Normal bowel sounds, No tenderness, No masses, No rebound, No guarding Musculoskeletal: No tenderness, No warmth Neurological: Normal speech, Normal strength at 5/5 x4 extr, Normal tone, Normal affect - Studies Laboratory Data (last 24 hrs) 04/21/20 05:00: WBC 5.30 D, Hgb 11.0 L, Hct 34.1 L, Plt Count 309 04/21/20 05:00: Sodium 138, Potassium 3.2 L, BUN 17, Creatinine 0.85, Glucose 100, Total Bilirubin 0.3, AST 28, ALT 50, Alkaline Phosphatase 182 H Assessment and Plan - Plan Impression: Dyspnea secondary to acute on chronic respiratory failure with hypoxia likely secondary to COPD extubation complicated with recent COVID pneumonia Hypertension Hyperlipidemia CAD Plan: Dyspnea secondary to acute on chronic respiratory failure with hypoxia likely secondary to COPD extubation complicated with recent COVID pneumonia: Patient be admitted for further evaluation and treatment. Suspect COPD exacerbation. Continue COVID supplementation. Continue IV steroids and COPD medication. Pulmonology has been consulted to help assist. Respiratory to wean off high- flow oxygen. Patient will need to be weaned down to nasal cannula. Continue monitor and assess daily. Will consult social work to help with the possibility of home health and physical therapy at discharge with home oxygen. Anticipate improvement over the next 72 hr. Hypertension: Restart home medication Hyperlipidemia: Restart home medication CAD: Restart home medication. Discharge Plan: Home Plan to discharge in: Greater than 2 days - Advance Directives Does patient have a Living Will: No Does patient have a Durable POA for Healthcare: No - Code Status/Comfort Care Code Status Assessed: Yes (patient is full code. ) Time Spent Managing Pts Care (In Minutes): 55
--- NOTE | 2020-04-21 14:58 | RAD REPORT ---
EXAM DESCRIPTION: XR Chest, 1 View CLINICAL HISTORY: DYSPNEA TECHNIQUE: Frontal view of the chest. COMPARISON: No relevant prior studies available. FINDINGS: Lungs: There is a small linear focus of atelectasis or scar in the right midlung. Pleural space: No pneumothorax. No pleural effusion. Heart: Normal cardiac size and configuration. Mediastinum: No abnormality noted. Bones/joints: No osseous destruction or sclerosis noted. IMPRESSION: No significant acute findings in the chest. Electronically signed by: Juliet Balbuena MD 04/21/2020 5:21 AM PERSONAL INVESTMENT ADVISER Due to temporary technical issues with the PACS/Fluency reporting system, reports are being signed by the in house radiologists without review as a courtesy to insure prompt reporting. The interpreting radiologist is fully responsible for the content of the report.
[2020-04-21] MEDS: ATORVASTATIN 20 MG TAB PO SCH (20:03)
[2020-04-21] MEDS ORDERED: ATORVASTATIN 20 MG TAB ONE (20:03)
[2020-04-21] MEDS ORDERED: LORAZEPAM 0.5 MG TABLET ONE (20:03)
[2020-04-21] MEDS: LORAZEPAM 0.5 MG TABLET PO PRN (20:04)
[2020-04-21] MEDS: AMITRIPTYLINE 50 MG TAB PO SCH (20:05)
[2020-04-21] MEDS: MELATONIN 5 MG TABLET PO SCH (20:05)
[2020-04-22] MEDS: METHYLPREDNISOLONE 125 MG INJ IV SCH ×3 (00:17→16:18)
[2020-04-22] MEDS ORDERED: METHYLPREDNISOLONE 125 MG INJ ONE ×3 (00:28→16:27)
[2020-04-22 07:08] LABS: Absolute Lymphocytes (CBC) 0.6 K/uL (0.7-4.9); Basophils % 0.1 % (0-1.3); Hematocrit 33.3 % (36.0-45.0); Lymphocytes % 10.5 % (15.3-44.8); MPV 6.6 fL (7.6-11.3); RBC Red Blood Cell Count 4.55 M/uL (3.86-4.86)
[2020-04-22 07:30] LABS: C-Reactive Protein 36.7 mg/L (<3.00); Ferritin 44.2 ng/mL (8-388)
[2020-04-22 07:31] LABS: Magnesium 2.4 mg/dL (1.8-2.4); Potassium 4.1 mmol/L (3.5-5.1)
[2020-04-22 07:33] LABS: Blood Morphology Comment NOT SEEN (NOT SEEN); Platelet Estimate ADEQ
--- NOTE | 2020-04-22 08:23 | P.CNS ---
Date of Consult: 04/22/20 Primary Care Provider: Dr. Delgado; Pulmonary-Dr. Haywood Chief Complaint: SOB History of Present Illness: Patient is 59 years of age well known to me she has a history of terminal COPD hypertension was recently hospital I discharged came back again planing of shortness of breath extreme weakness desaturation on minimal exertion denies any fever chills cough sputum back to her baseline Allergies codeine Allergy (Verified 04/17/20 12:07) Anaphylaxis hydralazine Allergy (Verified 04/17/20 12:07) Anaphylaxis hydrocodone Allergy (Verified 04/17/20 12:07) Anaphylaxis influenza A (H1N1) virus vaccine [id number] 2008 [From influenza A (H1N1)] Allergy (Verified 04/17/20 12:07) Anaphylaxis tetanus immune globulin Allergy (Verified 04/17/20 12:07) Anaphylaxis lisinopril Adverse Reaction (Verified 04/17/20 12:07) COUGH Home Medications: Albuterol Neb [Proventil 0.083% Neb Soln] 2.5 mg IH TID 04/17/20 Amitriptyline [Elavil*] 1 tab PO DAILY 04/17/20 Amlodipine [Norvasc*] 1 tab PO DAILY 04/17/20 Ascorbic Acid [Vitamin C*] 2,000 mg PO BID #120 tablet 04/17/20 Atorvastatin Calcium [Lipitor*] 20 mg PO DAILY 04/17/20 Clopidogrel Bisulfate [Plavix*] 1 tab PO DAILY 04/17/20 Dicyclomine [Bentyl*] 1 tab PO DAILY 04/17/20 Isosorbide Mononitrate [Isosorbide Mononitrate ER] 1 tab PO DAILY 04/17/20 Losartan/Hydrochlorothiazide [Losartan-Hctz 100-25 mg Tab] 1 tab PO DAILY 04/17/20 Pantoprazole Sodium [Protonix] 1 tab PO DAILY 04/17/20 Zinc Sulfate [Zinc Sulfate*] 220 mg PO DAILY #30 cap 04/17/20 predniSONE [Prednisone*] 20 mg PO DAILY #7 tab 04/17/20 - Past Medical/Surgical History Diabetic: No -: Coronary artery disease -: COPD -: HTN -: Laparotomy -: Right knee surgeon Psychosocial/ Personal History: lives with son - Family History Father Medical History: Heart disease - Social History Alcohol use: No CD- Drugs: No Place of Residence: Home Review of Systems General: Weakness Respiratory: Cough, Shortness of Breath Physical Examination Temp Pulse Resp BP Pulse Ox 97.7 F 95 H 18 148/82 H 96 04/22/20 04:00 04/22/20 04:00 04/22/20 04:00 04/22/20 04:00 04/22/20 04:00 General: Alert, Oriented x3 Respiratory: Clear to auscultation bilaterally, Expiratory wheezes Cardiovascular: No edema, Regular rate/rhythm Gastrointestinal: Normal bowel sounds, Soft and benign - Problems (1) COPD with exacerbation Current Visit: No Status: Acute Plan: Patient is 59 years of age terminal COPD admitted with COPD exacerbation she was just recently discharged readmitted again history of [place] virus infection patient's white count is normal vital signs satisfactory chest x-ray shows COPD changes recommend discharge continue 20 mg of prednisone for a week then 10 mg once a day continue with bronchodilators evaluate for home oxygen will check room air arterial blood gases patient has chronic stable respiratory failure
--- NOTE | 2020-04-22 09:13 | RAD REPORT ---
EXAM DESCRIPTION: RAD - Chest Single View - 04/22/2020 8:16 am CLINICAL HISTORY: follow up COPD Chest pain. COMPARISON: Chest Single View dated 04/21/2020; Chest Single View dated 04/16/2020 FINDINGS: Portable technique limits examination quality. The lungs are mildly emphysematous but grossly clear. The heart is normal in size. No displaced fract ures. IMPRESSION: Mild COPD.
[2020-04-22] MEDS ORDERED: ALBUTEROL 2.5 MG/3 ML NEB SOL ONE ×2 (09:45→15:23)
[2020-04-22] MEDS ORDERED: IPRATROPIUM BROM 0.5MG/2.5ML ONE ×2 (09:45→15:23)
[2020-04-22] MEDS: VITAMIN D 1000 UNIT TAB PO SCH (09:48)
[2020-04-22] MEDS: FAMOTIDINE 20 MG TAB PO SCH ×2 (09:49→20:39)
[2020-04-22] MEDS: ASCORBIC ACID 500 MG TABLET PO SCH ×3 (09:49→20:39)
[2020-04-22] MEDS: DICYCLOMINE HCL 10 MG CAP PO SCH (09:49)
[2020-04-22] MEDS: ENOXAPARIN 40 MG/0.4 ML SQ SCH (09:49)
[2020-04-22] MEDS: AMLODIPINE 10 MG TAB PO SCH (09:49)
[2020-04-22] MEDS: ZINC SULFATE 220 MG CAP PO SCH (09:49)
[2020-04-22] MEDS: THIAMINE HCL 100 MG TABLET PO SCH ×2 (09:49→20:40)
[2020-04-22] MEDS: CLOPIDOGREL 75 MG TABLET PO SCH (09:49)
[2020-04-22] MEDS: ISOSORBIDE MONO SR 30 MG TAB PO SCH (09:50)
[2020-04-22] MEDS: LOSARTAN/HCTZ 50-12.5 PO SCH (09:50)
[2020-04-22] MEDS ORDERED: CLOPIDOGREL 75 MG TABLET ONE (09:55)
[2020-04-22] MEDS ORDERED: THIAMINE HCL 100 MG TABLET ONE ×2 (09:55→20:49)
[2020-04-22] MEDS ORDERED: VITAMIN D 1000 UNIT TAB ONE (09:56)
[2020-04-22] MEDS ORDERED: AMLODIPINE 10 MG TAB ONE (09:56)
[2020-04-22] MEDS ORDERED: ZINC SULFATE 220 MG CAP ONE (09:57)
[2020-04-22] MEDS ORDERED: DICYCLOMINE HCL 10 MG CAP ONE (09:57)
[2020-04-22] MEDS ORDERED: ASCORBIC ACID 500 MG TABLET ONE ×3 (09:57→20:45)
[2020-04-22] MEDS ORDERED: ENOXAPARIN 40 MG/0.4 ML SQ ONE (09:57)
[2020-04-22] MEDS ORDERED: FAMOTIDINE 20 MG TAB ONE ×2 (09:57→20:45)
[2020-04-22] MEDS: ALBUTEROL 2.5 MG/3 ML NEB SOL NEB PRN (10:00)
[2020-04-22] MEDS: ARFORMOTEROL TARTRATE 15 MCG/2 ML VIAL.NEB NEB SCH ×2 (10:00→20:20)
[2020-04-22] MEDS: IPRATROPIUM BROM 0.5MG/2.5ML NEB PRN ×2 (10:00→15:00)
[2020-04-22 10:33] LABS: Blood Gas Oxyhemoglobin 96.1 % (94-97); Blood O2 Saturation 97.7 % (92-98.5)
--- NOTE | 2020-04-22 10:53 | P.PN ---
Subjective Date of Service: 04/22/20 Primary Care Provider: Dr. Delgado; Pulmonary-Dr. Haywood Chief Complaint: SOB Subjective: Improving (Patient currently on 3.5 L per nasal cannula. Improvement noted.) Physical Examination - Vital Signs Temperature: 98.1 F Blood Pressure: 133/78 Pulse: 103 Respirations: 22 Pulse Ox (%): 96 - Physical Exam General: Alert, In no apparent distress, Oriented x3 HEENT: Atraumatic Neck: Supple Respiratory: Expiratory wheezes, Other (Currently on 3.5 L) Gastrointestinal: No tenderness, No masses, No rebound, No guarding Neurological: Normal speech, Normal strength at 5/5 x4 extr, Normal tone, Normal affect - Studies Medications List Reviewed: Yes Assessment & Plan Discharge Plan: Home Plan to discharge in: 24 Hours Physician Review Additional Text: Impression: Dyspnea secondary to acute on chronic respiratory failure with hypoxia likely secondary to COPD extubation complicated with recent COVID pneumonia Hypertension Hyperlipidemia CAD Anxiety Plan: Dyspnea secondary to acute on chronic respiratory failure with hypoxia likely secondary to COPD extubation complicated with recent COVID pneumonia: Patient shows improvement. Respiratory failure likely more related to COPD exacerbation. Currently on 3.5 L per nasal cannula. Will need to arrange for home oxygen. Patient had [place] from [place] Home oxygen will need to be arranged in the area. Will change IV steroid to oral. Continue COVID supplementation. Physical therapy to assess ambulation. Will arrange for home oxygen at discharge along with home health/physical therapy. Continue with COPD medication. Anticipate improvement over the next 24 hr with possible discharge tomorrow. Case discussed with pulmonology. Hypertension: Continue home medication Hyperlipidemia: Continue home medication CAD: Continue home medication. Anxiety: Will provide medication. Time Spent Managing Pts Care (In Minutes): 55
[2020-04-22] MEDS ORDERED: PANTOPRAZOLE 40MG TABLET PO ONE (11:39)
[2020-04-22] MEDS: PANTOPRAZOLE 40MG TABLET PO SCH (12:23)
[2020-04-22] MEDS: LORAZEPAM 0.5 MG TABLET PO PRN ×2 (14:56→22:53)
[2020-04-22] MEDS ORDERED: LORAZEPAM 0.5 MG TABLET ONE ×2 (15:11→23:09)
[2020-04-22] MEDS: BENZONATATE 100 MG CAP PO PRN ×2 (16:19→22:53)
[2020-04-22] MEDS: METOPROLOL TAR 25 MG TAB PO SCH (16:19)
[2020-04-22] MEDS ORDERED: BENZONATATE 100 MG CAP PO ONE ×2 (16:27→23:09)
[2020-04-22] MEDS ORDERED: METHYLPREDNISOLONE 125 MG INJ IV SCH (17:00)
[2020-04-22] MEDS: MELATONIN 5 MG TABLET PO SCH (20:39)
[2020-04-22] MEDS: AMITRIPTYLINE 50 MG TAB PO SCH (20:39)
[2020-04-22] MEDS: ATORVASTATIN 20 MG TAB PO SCH (20:39)
[2020-04-22] MEDS ORDERED: ATORVASTATIN 20 MG TAB ONE (20:45)
[2020-04-22] MEDS ORDERED: predniSONE 20 MG TAB PO SCH (21:00)
[2020-04-23] MEDS: METHYLPREDNISOLONE 125 MG INJ IV SCH ×2 (00:11→09:00)
[2020-04-23] MEDS ORDERED: METHYLPREDNISOLONE 40 MG INJ ONE (00:14)
[2020-04-23 05:59] LABS: C-Reactive Protein 21.8 mg/L (<3.00); Ferritin 52.3 ng/mL (8-388); Magnesium 2.5 mg/dL (1.8-2.4); Potassium 3.3 mmol/L (3.5-5.1)
[2020-04-23] MEDS: METOPROLOL TAR 25 MG TAB PO SCH ×2 (06:00→16:46)
[2020-04-23] MEDS ORDERED: POTASSIUM CL SA 10 MEQ TAB PO ONE ×2 (06:19→06:40)
[2020-04-23] MEDS ORDERED: METOPROLOL TAR 25 MG TAB ONE (06:39)
[2020-04-23] MEDS: IPRATROPIUM BROM 0.5MG/2.5ML NEB PRN (08:21)
[2020-04-23] MEDS: ARFORMOTEROL TARTRATE 15 MCG/2 ML VIAL.NEB NEB SCH ×2 (08:21→19:20)
[2020-04-23] MEDS: ALBUTEROL 2.5 MG/3 ML NEB SOL NEB PRN (08:21)
[2020-04-23] MEDS ORDERED: IPRATROPIUM BROM 0.5MG/2.5ML ONE ×2 (08:34→14:17)
[2020-04-23] MEDS ORDERED: ALBUTEROL 2.5 MG/3 ML NEB SOL ONE (08:34)
[2020-04-23] MEDS: AMLODIPINE 10 MG TAB PO SCH (09:00)
[2020-04-23] MEDS: ISOSORBIDE MONO SR 30 MG TAB PO SCH (09:00)
[2020-04-23] MEDS: PANTOPRAZOLE 40MG TABLET PO SCH (09:00)
[2020-04-23] MEDS: ASCORBIC ACID 500 MG TABLET PO SCH ×3 (09:00→20:23)
[2020-04-23] MEDS: DICYCLOMINE HCL 10 MG CAP PO SCH (09:00)
[2020-04-23] MEDS: THIAMINE HCL 100 MG TABLET PO SCH ×2 (09:00→20:22)
[2020-04-23] MEDS: ZINC SULFATE 220 MG CAP PO SCH (09:00)
[2020-04-23] MEDS: VITAMIN D 1000 UNIT TAB PO SCH (09:00)
[2020-04-23] MEDS: FAMOTIDINE 20 MG TAB PO SCH ×2 (09:00→20:22)
[2020-04-23] MEDS: ENOXAPARIN 40 MG/0.4 ML SQ SCH (09:00)
[2020-04-23] MEDS: CLOPIDOGREL 75 MG TABLET PO SCH (09:00)
[2020-04-23] MEDS: LOSARTAN/HCTZ 50-12.5 PO SCH (09:00)
[2020-04-23] MEDS ORDERED: ENOXAPARIN 40 MG/0.4 ML SQ ONE (09:16)
[2020-04-23] MEDS ORDERED: FAMOTIDINE 20 MG TAB ONE (09:16)
[2020-04-23] MEDS ORDERED: AMLODIPINE 10 MG TAB ONE (09:16)
[2020-04-23] MEDS ORDERED: CLOPIDOGREL 75 MG TABLET ONE (09:16)
[2020-04-23] MEDS ORDERED: DICYCLOMINE HCL 10 MG CAP ONE (09:16)
--- NOTE | 2020-04-23 09:56 | P.PN ---
Subjective Date of Service: 04/23/20 Primary Care Provider: Dr. Delgado; Pulmonary-Dr. Haywood Chief Complaint: SOB Subjective: Other (Patient still with shortness of breath. Currently on 2 L per nasal cannula.) Physical Examination - Vital Signs Temperature: 98.0 F Blood Pressure: 147/86 Pulse: 87 Respirations: 20 Pulse Ox (%): 94 - Studies Medications List Reviewed: Yes Assessment & Plan Discharge Plan: Home Plan to discharge in: 48 Hours Physician Review Additional Text: Physical exam: Patient alert, cooperative. No significant distress noted Heart: Regular rate and rhythm Lungs: Increased wheezing bilateral, poor inspiration and expiration. Currently on 2 L per nasal cannula GI: Soft, nontender, nondistended Extremities: No edema to the lower extremities. Good range of motion throughout. Impression: Dyspnea secondary to acute on chronic respiratory failure with hypoxia likely secondary to COPD extubation complicated with recent COVID pneumonia Hypertension Hyperlipidemia CAD Anxiety Plan: Dyspnea secondary to acute on chronic respiratory failure with hypoxia likely s econdary to COPD extubation complicated with recent COVID pneumonia: Some improvement noted. Patient still short of breath especially with exertion. Patient currently on 2 L per nasal cannula. Patient on DVT prophylaxis-Lovenox. Will recheck chest x-ray. Will order echocardiogram to further evaluate for possible underlying cardiac problems. Continue IV Solu-Medrol. Continue COPD medication. Continue COVID supplementation. Will discuss further with pulmonology for recommendation. Patient desires to go home with home health and physical therapy along with home oxygen. Will help arrange for this. Patient still not ready to be discharge at this time. Patient appears poorly deconditioned. If better will continue with physical therapy. Anticipate improvement over the next 24-48 hr. Hypertension: Continue home medication. Blood pressure stable. Continue Norvasc, losartan/hydrochlorothiazide and metoprolol. Hyperlipidemia: Continue home medication-Lipitor CAD: Continue home medication-Plavix and isosorbide mononitrate. Will check echocardiogram. Anxiety: Will provide medication. Time Spent Managing Pts Care (In Minutes): 55
[2020-04-23] MEDS ORDERED: METHYLPREDNISOLONE 125 MG INJ ONE (10:41)
[2020-04-23] MEDS ORDERED: VITAMIN D 1000 UNIT TAB ONE (10:42)
[2020-04-23] MEDS ORDERED: THIAMINE HCL 100 MG TABLET ONE (10:42)
[2020-04-23] MEDS ORDERED: ASCORBIC ACID 500 MG TABLET ONE (10:42)
[2020-04-23] MEDS ORDERED: ZINC SULFATE 220 MG CAP ONE (10:42)
[2020-04-23] MEDS ORDERED: PANTOPRAZOLE 40MG TABLET PO ONE (10:42)
--- NOTE | 2020-04-23 10:57 | RAD REPORT ---
EXAM DESCRIPTION: [facility] Single View04/23/2020 10:39 am CLINICAL HISTORY: Chest pain COMPARISON: April 22 FINDINGS: Area of subsegmental atelectasis right lung. Remainder of the lungs appear clear of acute infiltrate. Heart is normal size
--- NOTE | 2020-04-23 12:38 | P.PN ---
Subjective Date of Service: 04/23/20 Primary Care Provider: Dr. Delgado; Pulmonary-Dr. Haywood Chief Complaint: SOB weakness Patient still feels very weak apparently unable to ambulate to the commode still short of breath patient has terminal COPD Review of Systems General: Weakness Respiratory: Shortness of Breath Physical Examination - Vital Signs Temperature: 98.0 F Blood Pressure: 135/73 Pulse: 96 Respirations: 22 Pulse Ox (%): 94 - Physical Exam General: Alert, Oriented x3, Moderate distress Respiratory: Clear to auscultation bilaterally, Diminished Cardiovascular: No edema, Regular rate/rhythm - Studies Medications List Reviewed: Yes Assessment & Plan - Problems (Diagnosis) (1) COPD with exacerbation Current Visit: No Status: Acute Plan: Patient is 59 years of age with terminal COPD still feeling very weak recently contracted [place]o virus vital signs stable blood gases reviewed oxygenation satisfactory patient may not qualify for noninvasive ventilator echocardiogram pending change to p.o. prednisone Dc losartan patient is complaining of low blood pressure and ambulation evaluate for long-term acute care facility or a sniff
[2020-04-23] MEDS: IPRATROPIUM BROM 0.5MG/2.5ML NEB SCH ×3 (13:00→19:20)
[2020-04-23] MEDS: LORAZEPAM 0.5 MG TABLET PO PRN (13:38)
[2020-04-23] MEDS ORDERED: MAGNES/ALUMIN/SIMET 30ML UCUP ONE (13:46)
[2020-04-23] MEDS ORDERED: LORazepam 2 MG/ML VIAL ONE (13:47)
[2020-04-23] MEDS ORDERED: LORAZEPAM 0.5 MG TABLET ONE (13:50)
[2020-04-23] MEDS: BENZONATATE 100 MG CAP PO PRN (16:50)
[2020-04-23] MEDS: ACETAMINOPHEN 500 MG TAB PO PRN (20:22)
[2020-04-23] MEDS: predniSONE 20 MG TAB PO SCH (20:22)
[2020-04-23] MEDS: AMITRIPTYLINE 50 MG TAB PO SCH (20:22)
[2020-04-23] MEDS: MELATONIN 5 MG TABLET PO SCH (20:23)
[2020-04-23] MEDS: ATORVASTATIN 20 MG TAB PO SCH (20:23)
[2020-04-24] MEDS: IPRATROPIUM BROM 0.5MG/2.5ML NEB SCH ×4 (01:35→19:22)
[2020-04-24 04:40] LABS: Absolute Lymphocytes (CBC) 0.7 K/uL (0.7-4.9); Basophils % 0.1 % (0-1.3); Hematocrit 34.8 % (36.0-45.0); Lymphocytes % 8.5 % (15.3-44.8); MPV 6.4 fL (7.6-11.3); RBC Red Blood Cell Count 4.71 M/uL (3.86-4.86)
[2020-04-24 05:12] LABS: C-Reactive Protein 17.3 mg/L (<3.00); Ferritin 60.5 ng/mL (8-388); Magnesium 2.5 mg/dL (1.8-2.4); Potassium 3.3 mmol/L (3.5-5.1)
[2020-04-24] MEDS ORDERED: POTASSIUM 25 MEQ EFFERV TAB PO ONE (06:28)
[2020-04-24] MEDS: METOPROLOL TAR 25 MG TAB PO SCH ×2 (06:36→17:31)
[2020-04-24] MEDS: ARFORMOTEROL TARTRATE 15 MCG/2 ML VIAL.NEB NEB SCH ×2 (07:46→19:22)
[2020-04-24] MEDS: FAMOTIDINE 20 MG TAB PO SCH ×2 (07:54→19:43)
[2020-04-24] MEDS: ISOSORBIDE MONO SR 30 MG TAB PO SCH (07:54)
[2020-04-24] MEDS: DICYCLOMINE HCL 10 MG CAP PO SCH (07:54)
[2020-04-24] MEDS: PANTOPRAZOLE 40MG TABLET PO SCH (07:55)
[2020-04-24] MEDS: VITAMIN D 1000 UNIT TAB PO SCH (07:55)
[2020-04-24] MEDS: predniSONE 20 MG TAB PO SCH (07:55)
[2020-04-24] MEDS: CLOPIDOGREL 75 MG TABLET PO SCH (07:55)
[2020-04-24] MEDS: ASCORBIC ACID 500 MG TABLET PO SCH ×3 (07:55→19:43)
[2020-04-24] MEDS: THIAMINE HCL 100 MG TABLET PO SCH ×2 (07:56→19:44)
[2020-04-24] MEDS: AMLODIPINE 10 MG TAB PO SCH (07:56)
[2020-04-24] MEDS: ENOXAPARIN 40 MG/0.4 ML SQ SCH (07:57)
[2020-04-24] MEDS: ZINC SULFATE 220 MG CAP PO SCH (07:57)
[2020-04-24] MEDS: LORAZEPAM 0.5 MG TABLET PO PRN ×2 (08:02→15:45)
--- NOTE | 2020-04-24 08:25 | ECHO ---
HEIGHT: 5 ft 3 in WEIGHT: 190 lb 0 oz DATE OF STUDY: 04/23/[address]: Vasquez Pelaez DO 2-DIMENSIONAL: YES M.MODE: YES DOPPLER: YES COLOR FLOW: YES TDS: YES PORTABLE: DEFINITY: BUBBLE STUDY: DIAGNOSIS: SHORTNESS OF BREATH CARDIAC HISTORY: CATHERIZATION: SURGERY: PROSTHETIC VALVE: PACEMAKER: MEASUREMENTS (cm) DIASTOLIC (NORMALS) SYSTOLIC (NORMALS) IVSd 0.8 (0.6-1.2) LA Diam 3.9 (1.9-4.0) LVEF 69% LVIDd 4.1 (3.5-5.7) LVIDs 2.5 (2.0-3.5) %FS 38% LVPWd 0.9 (0.6-1.2) Ao Diam 3.1 (2.0-3.7) 2 DIMENSIONAL ASSESSMENT: RIGHT ATRIUM: NORMAL LEFT ATRIUM: NORMAL RIGHT VENTRICLE: NORMAL LEFT VENTRICLE: NORMAL TRICUSPID VALVE: NORMAL MITRAL VALVE: NORMAL PULMONIC VALVE: NORMAL AORTIC VALVE: NORMAL PERICARDIAL EFFUSION: NONE AORTIC ROOT: NORMAL LEFT VENTRICULAR WALL MOTION: NORMAL DOPPLER/COLOR FLOW: NORMAL COMMENTS: NORMAL LEFT VENTRICULAR EJECTION FRACTION 55-60% WITH NORMAL WALL MOTION. NORMAL STUDY. TECHNOLOGIST: SALBADOR HANSEN
[2020-04-24] MEDS: ALBUTEROL 2.5 MG/3 ML NEB SOL NEB PRN (09:15)
--- NOTE | 2020-04-24 11:29 | P.PN ---
Subjective Date of Service: 04/24/20 Primary Care Provider: Dr. Delgado; Pulmonary-Dr. Haywood Chief Complaint: SOB weakness Patient is feeling better she still continues to feel weak of breath Review of Systems General: Weakness Respiratory: Shortness of Breath Physical Examination - Vital Signs Temperature: 98.6 F Blood Pressure: 146/77 Pulse: 87 Respirations: 22 Pulse Ox (%): 91 - Physical Exam General: Alert, Oriented x3, Mild distress Respiratory: Normal air movement, Expiratory wheezes Cardiovascular: Regular rate/rhythm - Studies Medications List Reviewed: Yes Assessment & Plan - Problems (Diagnosis) (1) COPD with exacerbation Current Visit: No Status: Acute Plan: Patient has terminal COPD very poor functional status chemistries reviewed vital signs stable discuss with the patient she is agreeable to go home has family support or go to sniff unit prognosis very poor consider DNR
--- NOTE | 2020-04-24 15:17 | P.PN ---
Subjective Date of Service: 04/24/20 Primary Care Provider: Dr. Delgado; Pulmonary-Dr. Haywood Chief Complaint: SOB weakness Subjective: Other (Stable. Currently on 4 l/m) Physical Examination - Vital Signs Temperature: 98.5 F Blood Pressure: 142/78 Pulse: 91 Respirations: 22 Pulse Ox (%): 94 - Studies Medications List Reviewed: Yes Assessment & Plan Discharge Plan: Other (SNF) Plan to discharge in: Greater than 2 days Physician Review Additional Text: Physical exam: Patient alert, cooperative. No significant distress noted. Increased oxygen re quirement today. Heart: Regular rate and rhythm Lungs: Increased wheezing bilateral, poor inspiration and expiration. Currently on 4 L per nasal cannula GI: Soft, nontender, nondistended Extremities: No edema to the lower extremities. Good range of motion throughout. Impression: Dyspnea secondary to acute on chronic respiratory failure with hypoxia likely secondary to COPD extubation complicated with recent COVID pneumonia Hypertension Hyperlipidemia CAD Anxiety Plan: Dyspnea secondary to acute on chronic respiratory failure with hypoxia likely secondary to COPD extubation complicated with recent COVID pneumonia: Increased oxygen requirement noted on 4 L per nasal cannula. Echocardiogram unremarkable. Cardiology recommends no intervention at this time. Continue medication. Spoke with pulmonology. Pulmonology recommends to continue current medication. Discussed the possibility of skilled placement for the patient. Patient agrees. Social work to help with placement. This may be a difficult process pending her insurance. If skilled placement denied then will need to pursue home health. Anticipate approval for skilled placement by Monday. Continue physical therapy. Occupational therapy order. Hypertension: Continue home medication. Blood pressure stable. Continue Nor vasc, losartan/hydrochlorothiazide and metoprolol. Hyperlipidemia: Continue home medication-Lipitor CAD: Continue home medication-Plavix and isosorbide mononitrate. Echocardiogram unremarkable Anxiety: Will provide medication. Time Spent Managing Pts Care (In Minutes): 55
[2020-04-24] MEDS: ACETAMINOPHEN 500 MG TAB PO PRN ×2 (15:45→19:46)
[2020-04-24] MEDS: ATORVASTATIN 20 MG TAB PO SCH (19:43)
[2020-04-24] MEDS: AMITRIPTYLINE 50 MG TAB PO SCH (19:43)
[2020-04-24] MEDS: MELATONIN 5 MG TABLET PO SCH (19:44)
[2020-04-24] MEDS: ONDANSETRON 4 MG/2 ML VIAL IV PRN (20:16)
[2020-04-24] MEDS ORDERED: predniSONE 10 MG TAB PO SCH (21:00)
[2020-04-25] MEDS: IPRATROPIUM BROM 0.5MG/2.5ML NEB SCH ×4 (01:25→19:30)
[2020-04-25 05:11] LABS: Absolute Lymphocytes (CBC) 0.9 K/uL (0.7-4.9); Basophils % 0.1 % (0-1.3); Hematocrit 32.6 % (36.0-45.0); Lymphocytes % 11.5 % (15.3-44.8); MPV 6.3 fL (7.6-11.3); RBC Red Blood Cell Count 4.47 M/uL (3.86-4.86)
[2020-04-25 06:08] LABS: BUN Blood Urea Nitrogen 15 mg/dL (7-18); Bicarbonate 32 mmol/L (21-32); Ferritin 76.7 ng/mL (8-388); Glucose Level 90 mg/dL (74-106); Magnesium 2.3 mg/dL (1.8-2.4); Potassium 3.7 mmol/L (3.5-5.1); Sodium Level 140 mmol/L (136-145)
[2020-04-25] MEDS: METOPROLOL TAR 25 MG TAB PO SCH ×2 (06:12→17:22)
[2020-04-25] MEDS ORDERED: POTASSIUM 25 MEQ EFFERV TAB PO ONE (06:14)
[2020-04-25] MEDS: BENZONATATE 100 MG CAP PO PRN ×2 (06:22→20:13)
[2020-04-25] MEDS: ARFORMOTEROL TARTRATE 15 MCG/2 ML VIAL.NEB NEB SCH ×2 (07:26→19:30)
--- NOTE | 2020-04-25 07:45 | P.PN ---
Subjective Date of Service: 04/25/20 Primary Care Provider: Dr. Delgado; Pulmonary-Dr. Haywood Chief Complaint: SOB weakness Subjective: Other (Patient stable. Patient reports difficulty with sleep. Currently on 3 L per nasal cannula.) Physical Examination - Vital Signs Temperature: 97.9 F Blood Pressure: 136/81 Pulse: 96 Respirations: 20 Pulse Ox (%): 91 - Studies Medications List Reviewed: Yes Assessment & Plan Discharge Plan: Other (senior care facility) Plan to discharge in: 72 Hours Physician Review Additional Text: Physical exam: Patient alert, cooperative. Currently on 3 L per nasal cannula. This is improved since yesterday. Some anxiety noted difficulty sleeping last night. Patient desires rest. Heart: Regular rate and rhythm Lungs: Increased wheezing bilateral, poor inspiration and expiration. Currently on 3 L per nasal cannula GI: Soft, nontender, nondistended Extremities: No edema to the lower extremities. Good range of motion throughout. Impression: Dyspnea secondary to acute on chronic respiratory failure with hypoxia likely secondary to COPD extubation complicated with recent COVID pneumonia Hypertension Hyperlipidemia CAD Anxiety Insomnia Plan: Dyspnea secondary to acute on chronic respiratory failure with hypoxia likely secondary to COPD extubation complicated with recent COVID pneumonia: Less oxygen requirement noted this morning. Currently on 3 L per nasal cannula. Still with some shortness of breath. CRP increased yesterday. Will change prednisone to IV Solu-Medrol today. Continue with incentive spirometer. Continue physical therapy. Patient still desires to go to a skilled facility at discharge. Spoke with social work specialist yesterday about this. Awaiting to hear from insurance to see if she has any benefit for skilled placement. This will likely occur on Monday. Advanced directives readdress with the patient. Patient understands that she has severe COPD. Patient reports COPD has worsened over the years. She understands that her condition is terminal. Patient desires to be do not resuscitate. Will discuss with pulmonology about the possibility of non invasive ventilator. Will check to see if patient qualifies. Also discuss with patient about the possibility of hospice in the future. If her condition worsens she will consider this. Hopefully with skilled placement her condition will stabilize. Will discuss with cardiology about their recommendations. Continue to monitor the patient closely. Anticipate discharge to skilled placement on Monday. Hypertension: Continue home medication. Blood pressure stable. Continue Norvasc, losartan/hydrochlorothiazide and metoprolol. Hyperlipidemia: Continue home medication-Lipitor CAD: Continue home medication-Plavix and isosorbide mononitrate. Echocardiogram unremarkable Anxiety: Will provide medication. Insomnia: Will provide medication. Time Spent Managing Pts Care (In Minutes): 55
[2020-04-25] MEDS: VITAMIN D 1000 UNIT TAB PO SCH (08:43)
[2020-04-25] MEDS: ACETAMINOPHEN 500 MG TAB PO PRN ×2 (08:43→20:16)
[2020-04-25] MEDS: ASCORBIC ACID 500 MG TABLET PO SCH ×3 (08:43→20:16)
[2020-04-25] MEDS: ONDANSETRON 4 MG/2 ML VIAL IV PRN (08:44)
[2020-04-25] MEDS: FAMOTIDINE 20 MG TAB PO SCH ×2 (08:44→20:16)
[2020-04-25] MEDS: AMLODIPINE 10 MG TAB PO SCH (08:44)
[2020-04-25] MEDS: PANTOPRAZOLE 40MG TABLET PO SCH (08:45)
[2020-04-25] MEDS: ENOXAPARIN 40 MG/0.4 ML SQ SCH (08:45)
[2020-04-25] MEDS: ZINC SULFATE 220 MG CAP PO SCH (08:45)
[2020-04-25] MEDS: DICYCLOMINE HCL 10 MG CAP PO SCH (08:45)
[2020-04-25] MEDS: CLOPIDOGREL 75 MG TABLET PO SCH (08:45)
[2020-04-25] MEDS: ISOSORBIDE MONO SR 30 MG TAB PO SCH (08:45)
[2020-04-25] MEDS: THIAMINE HCL 100 MG TABLET PO SCH ×2 (08:45→20:13)
[2020-04-25] MEDS: METHYLPREDNISOLONE 40 MG INJ IV SCH ×2 (08:47→17:22)
[2020-04-25] MEDS ORDERED: predniSONE 10 MG TAB PO SCH (09:00)
--- NOTE | 2020-04-25 10:55 | P.PN ---
Subjective Date of Service: 04/25/20 Primary Care Provider: Dr. Delgado; Pulmonary-Dr. Haywood Chief Complaint: COPD exacerbation Patient still complains of feeling weak shortness of breath on and exertion worse since the [place] virus Review of Systems General: Weakness Respiratory: Cough, Shortness of Breath Physical Examination - Vital Signs Temperature: 99.6 F Blood Pressure: 136/81 Pulse: 96 Respirations: 32 Pulse Ox (%): 88 - Physical Exam General: Alert, Moderate distress Respiratory: Expiratory wheezes Cardiovascular: No edema, Normal S1 S2 - Studies Medications List Reviewed: Yes Assessment & Plan - Problems (Diagnosis) (1) COPD with exacerbation Current Visit: No Status: Acute Plan: Terminal COPD Prezas discuss with the patient regarding DNR in she agreed very poor prognosis complaining of feeling worse more short of breath very weak agree with the scheduled nebulizers and IV steroids oxygenation stable on nasal cannula oxygen chest x-ray shows COPD changes echocardiogram normal
[2020-04-25] MEDS: AMITRIPTYLINE 50 MG TAB PO SCH (20:13)
[2020-04-25] MEDS: ATORVASTATIN 20 MG TAB PO SCH (20:13)
[2020-04-25] MEDS: LORAZEPAM 0.5 MG TABLET PO PRN (20:15)
[2020-04-25] MEDS: MELATONIN 5 MG TABLET PO SCH (20:16)
[2020-04-26] MEDS: METHYLPREDNISOLONE 40 MG INJ IV SCH ×3 (00:10→18:29)
[2020-04-26] MEDS: IPRATROPIUM BROM 0.5MG/2.5ML NEB SCH ×4 (01:25→19:10)
[2020-04-26 04:44] LABS: Absolute Lymphocytes (CBC) 0.4 K/uL (0.7-4.9); Hematocrit 32.5 % (36.0-45.0); Lymphocytes % 4.2 % (15.3-44.8); MPV 6.6 fL (7.6-11.3); RBC Red Blood Cell Count 4.47 M/uL (3.86-4.86)
[2020-04-26] MEDS: METOPROLOL TAR 25 MG TAB PO SCH ×2 (06:16→18:29)
[2020-04-26 06:26] LABS: BUN Blood Urea Nitrogen 19 mg/dL (7-18); Bicarbonate 30 mmol/L (21-32); Ferritin 130.1 ng/mL (8-388); Glucose Level 251 mg/dL (74-106); Magnesium 2.5 mg/dL (1.8-2.4); Potassium 3.7 mmol/L (3.5-5.1); Sodium Level 139 mmol/L (136-145)
[2020-04-26] MEDS: ARFORMOTEROL TARTRATE 15 MCG/2 ML VIAL.NEB NEB SCH ×2 (07:47→19:10)
[2020-04-26] MEDS: THIAMINE HCL 100 MG TABLET PO SCH ×2 (08:30→19:53)
[2020-04-26] MEDS: AMLODIPINE 10 MG TAB PO SCH (08:30)
[2020-04-26] MEDS: VITAMIN D 1000 UNIT TAB PO SCH (08:31)
[2020-04-26] MEDS: FAMOTIDINE 20 MG TAB PO SCH ×2 (08:31→19:53)
[2020-04-26] MEDS: ISOSORBIDE MONO SR 30 MG TAB PO SCH (08:31)
[2020-04-26] MEDS: ENOXAPARIN 40 MG/0.4 ML SQ SCH (08:31)
[2020-04-26] MEDS: ASCORBIC ACID 500 MG TABLET PO SCH ×3 (08:31→19:53)
[2020-04-26] MEDS: ZINC SULFATE 220 MG CAP PO SCH (08:31)
[2020-04-26] MEDS: CLOPIDOGREL 75 MG TABLET PO SCH (08:31)
[2020-04-26] MEDS: DICYCLOMINE HCL 10 MG CAP PO SCH (08:37)
--- NOTE | 2020-04-26 12:24 | P.PN ---
Subjective Date of Service: 04/26/20 Primary Care Provider: Dr. Delgado; Pulmonary-Dr. Haywood Chief Complaint: COPD exacerbation Subjective: Doing well (Patient appears improved today.) Physical Examination - Vital Signs Temperature: 97.6 F Blood Pressure: 150/74 Pulse: 85 Respirations: 24 Pulse Ox (%): 90 - Studies Microbiology Data (last 24 hrs): 04/21/20 05:15 Blood - Blood Aerobic Blood Culture - Final No growth in 5 days. 04/21/20 05:15 Blood - Blood Anaerobic Blood Culture - Final No growth in 5 days. 04/21/20 05:00 Blood - Blood Aerobic Blood Culture - Final No growth in 5 days. 04/21/20 05:00 Blood - Blood Anaerobic Blood Culture - Final No growth in 5 days. Medications List Reviewed: Yes Assessment & Plan Discharge Plan: Other (alf facility) Plan to discharge in: 24 Hours Physician Review Additional Text: Initial chief complaint: Shortness of breast secondary to COPD/COVID Physical exam: Patient alert, cooperative. Currently on 4 L per nasal cannula. Patient appears improved since yesterday. Patient was able to sleep well last night. Heart: Regular rate and rhythm Lungs: Increased wheezing bilateral, poor inspiration and expiration. Currently on 4 L per nasal cannula GI: Soft, nontender, nondistended Extremities: No edema to the lower extremities. Good range of motion throughout. Impression: Dyspnea secondary to acute on chronic respiratory failure with hypoxia likely secondary to COPD extubation complicated with recent COVID pneumonia Hypertension Hyperlipidemia CAD Anxiety Insomnia Plan: Dyspnea secondary to acute on chronic respiratory failure with hypoxia likely secondary to COPD extubation complicated with recent COVID pneumonia: Patient continues with 4 L per nasal cannula. Patient appears improved since yesterday. Patient was changed from prednisone to IV Solu-Medrol yesterday. Continue with IV Solu-Medrol. Consider switching to oral prednisone in the next 1-2 days. Continue with incentive spirometer. Continue physical therapy. Patient still continues to desire to go to a skilled facility at discharge. Social work to continue process on whether her insurance will allow low for this benefit. If so patient can be discharge to skilled facility. Will likely know tomorrow on with their insurance will approve. Readdress advanced directives. This had been discussed in detail yesterday. Patient remains DNR. Patient understands that she has severe terminal COPD. Patient reports COPD has worsened over the years. Also rediscussed with patient about the possibility of hospice in the future. If her condition worsens she will consider this. Hopefully with skilled placement her condition will stabilize. Cardiology recommends no intervention. Cardiology suspects shortness of breath all related to COPD. I will turn the service over to the hospitalist team tomorrow. I will go plan of care with him. Hypertension: Continue home medication. Blood pressure stable. Continue Norvasc, losartan/hydrochlorothiazide and metoprolol. Hyperlipidemia: Continue home medication-Lipitor CAD: Continue home medication-Plavix and isosorbide mononitrate. Echocardiogram unremarkable Anxiety: Will provide medication. Insomnia: Will provide medication. Time Spent Managing Pts Care (In Minutes): 55
[2020-04-26] MEDS: ACETAMINOPHEN 500 MG TAB PO PRN ×2 (12:54→23:16)
[2020-04-26] MEDS: ONDANSETRON 4 MG/2 ML VIAL IV PRN ×2 (12:54→18:39)
[2020-04-26] MEDS: ALBUTEROL 2.5 MG/3 ML NEB SOL NEB PRN (13:37)
[2020-04-26] MEDS ORDERED: METHYLPREDNISOLONE 40 MG INJ IV ONE (13:47)
--- NOTE | 2020-04-26 14:37 | RAD REPORT ---
EXAM DESCRIPTION: RAD - Chest Single View - 04/26/2020 2:11 pm CLINICAL HISTORY: followup SOB Chest pain. COMPARISON: Chest Single View dated 04/23/2020; Chest Single View dated 04/22/2020; Chest Single View da amna 04/21/2020; Chest Single View dated 04/16/2020 FINDINGS: Portable technique limits examination quality. Bilateral pulmonary opacities have mildly to moderately worsened, particularly in the right upper lob e, since 04/23/2020. The heart is upper limit normal size. No displaced fractures. IMPRESSION: Mild to moderate worsening of lung aeration, particularly in the right upper lobe, since comparative study.
[2020-04-26 14:46] LABS: Blood Gas Oxyhemoglobin 91.6 % (94-97); Blood O2 Saturation 93.7 % (92-98.5)
[2020-04-26] MEDS: AMITRIPTYLINE 50 MG TAB PO SCH (19:52)
[2020-04-26] MEDS: MELATONIN 5 MG TABLET PO SCH (19:52)
[2020-04-26] MEDS: ATORVASTATIN 20 MG TAB PO SCH (19:52)
[2020-04-26] MEDS: BENZONATATE 100 MG CAP PO PRN (19:53)
[2020-04-26] MEDS: LORAZEPAM 0.5 MG TABLET PO PRN (19:54)
[2020-04-27] MEDS: METHYLPREDNISOLONE 40 MG INJ IV SCH ×3 (00:10→17:00)
[2020-04-27] MEDS: IPRATROPIUM BROM 0.5MG/2.5ML NEB SCH ×4 (02:00→20:05)
[2020-04-27] MEDS: METOPROLOL TAR 25 MG TAB PO SCH ×2 (05:28→17:00)
[2020-04-27] MEDS: ARFORMOTEROL TARTRATE 15 MCG/2 ML VIAL.NEB NEB SCH ×2 (07:22→20:05)
[2020-04-27] MEDS: LORAZEPAM 0.5 MG TABLET PO PRN ×2 (07:37→15:45)
[2020-04-27] MEDS: VITAMIN D 1000 UNIT TAB PO SCH (07:38)
[2020-04-27] MEDS: CLOPIDOGREL 75 MG TABLET PO SCH (07:38)
[2020-04-27] MEDS: ISOSORBIDE MONO SR 30 MG TAB PO SCH (07:38)
[2020-04-27] MEDS: FAMOTIDINE 20 MG TAB PO SCH ×2 (07:38→21:24)
[2020-04-27] MEDS: ZINC SULFATE 220 MG CAP PO SCH (07:39)
[2020-04-27] MEDS: ASCORBIC ACID 500 MG TABLET PO SCH ×3 (07:39→21:25)
[2020-04-27] MEDS: DICYCLOMINE HCL 10 MG CAP PO SCH (07:39)
[2020-04-27] MEDS: THIAMINE HCL 100 MG TABLET PO SCH ×2 (07:39→21:25)
[2020-04-27] MEDS: AMLODIPINE 10 MG TAB PO SCH (07:39)
[2020-04-27] MEDS: ENOXAPARIN 40 MG/0.4 ML SQ SCH (07:40)
--- NOTE | 2020-04-27 08:43 | RAD REPORT ---
EXAM DESCRIPTION: RAD - Chest Single View - 04/27/2020 5:55 am CLINICAL HISTORY: follow up COPD/COVID Chest pain. COMPARISON: Chest Single View dated 04/26/2020; Chest Single View dated 04/23/2020; Chest Single View da amna 04/22/2020; Chest Single View dated 04/21/2020 FINDINGS: Portable technique limits examination quality. Bilateral interstitial lung opacities are again noted, mildly improved since the prior study. The hea rt is upper limit of normal in size. No displaced fractures. IMPRESSION: Slight improvement in lung aeration is seen since comparative study.
[2020-04-27] MEDS: ACETAMINOPHEN 500 MG TAB PO PRN (15:45)
[2020-04-27] MEDS: AMITRIPTYLINE 50 MG TAB PO SCH (21:24)
[2020-04-27] MEDS: ATORVASTATIN 20 MG TAB PO SCH (21:24)
[2020-04-27] MEDS: MELATONIN 5 MG TABLET PO SCH (21:24)
[2020-04-28] MEDS: METHYLPREDNISOLONE 40 MG INJ IV SCH ×2 (00:51→08:51)
[2020-04-28] MEDS: IPRATROPIUM BROM 0.5MG/2.5ML NEB SCH ×3 (01:38→13:40)
[2020-04-28 04:44] LABS: C-Reactive Protein 53.3 mg/L (<3.00)
[2020-04-28] MEDS: METOPROLOL TAR 25 MG TAB PO SCH (05:02)
[2020-04-28] MEDS: ACETAMINOPHEN 500 MG TAB PO PRN (05:03)
[2020-04-28] MEDS: LORAZEPAM 0.5 MG TABLET PO PRN (05:03)
[2020-04-28 05:24] LABS: Magnesium 2.3 mg/dL (1.8-2.4); Potassium 3.9 mmol/L (3.5-5.1)
[2020-04-28] MEDS: ARFORMOTEROL TARTRATE 15 MCG/2 ML VIAL.NEB NEB SCH (08:00)
[2020-04-28] MEDS: ENOXAPARIN 40 MG/0.4 ML SQ SCH (08:50)
[2020-04-28] MEDS: FAMOTIDINE 20 MG TAB PO SCH (08:51)
[2020-04-28] MEDS: VITAMIN D 1000 UNIT TAB PO SCH (08:51)
[2020-04-28] MEDS: THIAMINE HCL 100 MG TABLET PO SCH (08:52)
[2020-04-28] MEDS: CLOPIDOGREL 75 MG TABLET PO SCH (08:52)
[2020-04-28] MEDS: ZINC SULFATE 220 MG CAP PO SCH (08:52)
[2020-04-28] MEDS: ISOSORBIDE MONO SR 30 MG TAB PO SCH (08:52)
[2020-04-28] MEDS: DICYCLOMINE HCL 10 MG CAP PO SCH (08:52)
[2020-04-28] MEDS: ASCORBIC ACID 500 MG TABLET PO SCH ×2 (08:52→16:25)
[2020-04-28] MEDS: AMLODIPINE 10 MG TAB PO SCH (08:52)
[2020-04-28] MEDS ORDERED: POTASSIUM CL SA 10 MEQ TAB PO ONE (09:00)
[2020-04-28] MEDS: BENZONATATE 100 MG CAP PO PRN (10:00)
[2020-04-28] MEDS: ALBUTEROL 2.5 MG/3 ML NEB SOL NEB PRN (10:57)
[2020-04-28] MEDS ORDERED: MORPHINE 4 MG/ML SYR IV PRN (12:31)
[2020-04-28] MEDS ORDERED: IVERMECTIN 3 MG TABLET PO ONE (12:40)
--- NOTE | 2020-04-28 12:43 | P.PN ---
Subjective Date of Service: 04/28/20 Primary Care Provider: Dr. Delgado; Pulmonary-Dr. Haywood Chief Complaint: COPD exacerbation Patient is not doing well she is very short of breath wheezing Review of Systems General: Weakness Respiratory: Shortness of Breath Physical Examination - Vital Signs Temperature: 97.7 F Blood Pressure: 139/73 Pulse: 90 Respirations: 22 Pulse Ox (%): 90 - Physical Exam General: Moderate distress Respiratory: Expiratory wheezes Cardiovascular: No edema, Regular rate/rhythm - Studies Medications List Reviewed: Yes Assessment & Plan - Problems (Diagnosis) (1) COPD with exacerbation Current Visit: No Status: Acute Plan: Patient admitted with COPD exacerbation. History of coal weighed infection patient is got worse since she developed a [place] virus infection continue with IV steroid reduce dose I have also added some ivermectin patient is DNR very poor prognosis patient will not qualify for noninvasive ventilator rate tachypneic change to high-flow oxygen to be her oxygen demands consider hospice care
[2020-04-28] MEDS ORDERED: ALBUTEROL 2.5 MG/3 ML NEB SOL NEB SCH (13:00)
[2020-04-28 14:00] LABS: Absolute Lymphocytes (CBC) 0.6 K/uL (0.7-4.9); Basophils % 0.1 % (0-1.3); Hematocrit 31.1 % (36.0-45.0); Lymphocytes % 7.2 % (15.3-44.8); MPV 6.4 fL (7.6-11.3); RBC Red Blood Cell Count 4.27 M/uL (3.86-4.86)
[2020-04-28 14:22] LABS: Albumin 2.1 g/dL (3.4-5.0); Bilirubin Total 0.3 mg/dL (0.2-1.0); C-Reactive Protein 39.3 mg/L (<3.00); Ferritin 97.2 ng/mL (8-388); Magnesium 2.3 mg/dL (1.8-2.4); Potassium 4.1 mmol/L (3.5-5.1); Protein, Total 6.2 g/dL (6.4-8.2)
--- NOTE | 2020-04-28 14:45 | P.PN ---
Subjective Date of Service: 04/27/20 Patient feels like she is doing better today. Her oxygenation has improved and she is on 60% FiO2. Will continue to wean her down on the high-flow possibly to Venti mask Review of Systems 10-point ROS is otherwise unremarkable Physical Examination - Vital Signs Temperature: 97.7 F Blood Pressure: 139/73 Pulse: 90 Respirations: 22 Pulse Ox (%): 90 - Physical Exam General: Alert, In no apparent distress, Oriented x3 HEENT: Atraumatic, PERRLA, EOMI Neck: Supple, JVD not distended Respiratory: Clear to auscultation bilaterally, Normal air movement Cardiovascular: Regular rate/rhythm, Normal S1 S2 Gastrointestinal: Normal bowel sounds, No tenderness Musculoskeletal: No tenderness Integumentary: No rashes Neurological: Normal speech, Normal tone, Normal affect Lymphatics: No axilla or inguinal lymphadenopathy - Studies Medications List Reviewed: Yes Assessment & Plan - Problems (Diagnosis) (1) Pneumonia due to COVID-19 virus Current Visit: Yes Status: Acute (2) Hypoxemia Current Visit: Yes Status: Acute (3) COPD with exacerbation Current Visit: No Status: Acute - Plan 1. Continue with IV antibiotics 2. Continue with IV steroids 3. Repeat chest x-ray is symptoms are progressively worsening 4. O2 per protocol 5. Pulmonary consultation appreciated 6. Continue with nebulizer therapy 7. Wean down to Venti mask 8. Repeat labs including D-dimer, ferritin, and CRP and LFTs 9. GI and DVT prophylaxis Discharge Plan: [facility] Plan to discharge in: 48 Hours - Advance Directives Does patient have a Living Will: No Does patient have a Durable POA for Healthcare: No - Code Status/Comfort Care Code Status Assessed: Yes Code Status: Full Code Critical Care: No Time Spent Managing PTS Care (In Minutes): 35
--- NOTE | 2020-04-28 14:45 | P.DS ---
Discharge Date: 04/28/20 Primary Care Provider: Dr. Delgado; Pulmonary-Dr. Haywood Disposition: TRANSFER TO SNF - REHAB Discharge Condition: GOOD Reason for Admission: COPD exacerbation - Problems (1) Pneumonia due to COVID-19 virus Status: Acute (2) Hypoxemia Status: Acute (3) COPD with exacerbation Status: Acute Brief History of Present Illness: Patient is a 59-year-old female with history of hypertension, hyperlipidemia and COPD. Patient recently hospitalized for COVID pneumonia. Patient was discharged on 04/17/2020. Patient reported she was sent home with home oxygen. Patient continue to have increasing shortness of breath. Patient reported some fever and chills. Her symptoms did not improve. Patient denied any significant chest pain. She came to the ER for further evaluation. In the ER patient had significant tachypnea and hypoxia. Patient was placed on high-flow oxygen with improvement. Patient given IV steroid and magnesium. Patient stabilize. Pro calcitonin negative. Lactic acid normal. Ferritin 36. CRP 37. Sodium 138, potassium 3.2. Being of 17, creatinine 0.85 with a GFR 68. Patient admitted for further evaluation and treatment. Hospital Course: Patient oxygenation has improved. We went ahead and arrange for home oxygen. Patient is stable for discharge home. Vital Signs/Physical Exam: Temp Pulse Resp BP Pulse Ox 97.7 F 90 22 H 139/73 90 L 04/28/20 14:44 04/28/20 14:44 04/28/20 14:44 04/28/20 14:44 04/28/20 14:44 General: Alert, In no apparent distress Laboratory Data at Discharge: WBC 7.70 K/uL (4.3-10.9) D 04/28/20 13:44 Hgb 10.0 g/dL (12.0-15.0) L 04/28/20 13:44 Hct 31.1 % (36.0-45.0) L 04/28/20 13:44 Plt Count 440 K/uL (152-406) H D 04/28/20 13:44 Sodium 139 mmol/L (136-145) 04/28/20 13:44 Potassium 4.1 mmol/L (3.5-5.1) 04/28/20 13:44 BUN 31 mg/dL (7-18) H 04/28/20 13:44 Creatinine 0.69 mg/dL (0.55-1.3) 04/28/20 13:44 Glucose 289 mg/dL (74-106) H 04/28/20 13:44 Magnesium 2.3 mg/dL (1.8-2.4) 04/28/20 13:44 Total Bilirubin 0.3 mg/dL (0.2-1.0) 04/28/20 13:44 AST 18 U/L (15-37) 04/28/20 13:44 ALT 36 U/L (12-78) 04/28/20 13:44 Alkaline Phosphatase 121 U/L (45-117) H 04/28/20 13:44 Troponin I < 0.02 ng/mL (0.0-0.045) 04/28/20 13:44 Home Medications: Albuterol Neb [Proventil 0.083% Neb Soln] 2.5 mg IH TID 04/17/20 Amitriptyline [Elavil*] 1 tab PO DAILY 04/17/20 Amlodipine [Norvasc*] 1 tab PO DAILY 04/17/20 Ascorbic Acid [Vitamin C*] 2,000 mg PO BID #120 tablet 04/17/20 Atorvastatin Calcium [Lipitor*] 20 mg PO DAILY 04/17/20 Clopidogrel Bisulfate [Plavix*] 1 tab PO DAILY 04/17/20 Dicyclomine [Bentyl*] 1 tab PO DAILY 04/17/20 Isosorbide Mononitrate [Isosorbide Mononitrate ER] 1 tab PO DAILY 04/17/20 Losartan/Hydrochlorothiazide [Losartan-Hctz 100-25 mg Tab] 1 tab PO DAILY 04/17/20 Pantoprazole Sodium [Protonix] 1 tab PO DAILY 04/17/20 Zinc Sulfate [Zinc Sulfate*] 220 mg PO DAILY #30 cap 04/17/20 predniSONE [Prednisone*] 20 mg PO DAILY #7 tab 04/17/20 Arformoterol Tartrate [Brovana] 15 mcg NEB BIDRESP #30 vial.neb 04/28/20 Ascorbic Acid [Vitamin C*] 500 mg PO TID #30 tablet 04/28/20 Benzonatate [Tessalon Perle*] 100 mg PO TID PRN #30 cap 04/28/20 Enoxaparin Sodium [Lovenox 40 MG INJ*] 40 mg SQ DAILY #14 syr 04/28/20 Famotidine [Pepcid*] 20 mg PO BID #60 tab 04/28/20 Ipratropium Neb [Atrovent*] 0.5 mg NEB [id number] #60 amp 04/28/20 LORazepam [Ativan*] 0.5 mg PO Q8H PRN #14 tab 04/28/20 Melatonin 5 mg PO BEDTIME #20 tablet 04/28/20 Metoprolol Tartrate [Lopressor*] 25 mg PO BID 6AM 6PM #60 tab 04/28/20 Thiamine HCl [Vitamin B-1*] 100 mg PO BID #60 tablet 04/28/20 Zinc Sulfate [Zinc Sulfate*] 220 mg PO DAILY #30 cap 04/28/20 predniSONE [Prednisone*] 20 mg PO BID #20 tab 04/28/20 New Medications: LORazepam [Ativan*] 0.5 mg PO Q8H PRN #14 tab PRN Reason: Anxiety Ipratropium Neb [Atrovent*] 0.5 mg NEB [id number] #60 amp Arformoterol Tartrate [Brovana] 15 mcg NEB BIDRESP #30 vial.neb Metoprolol Tartrate [Lopressor*] 25 mg PO BID 6AM 6PM #60 tab Enoxaparin Sodium [Lovenox 40 MG INJ*] 40 mg SQ DAILY #14 syr Melatonin 5 mg PO BEDTIME #20 tablet Famotidine [Pepcid*] 20 mg PO BID #60 tab predniSONE [Prednisone*] 20 mg PO BID #20 tab Benzonatate [Tessalon Perle*] 100 mg PO TID PRN #30 cap PRN Reason: Cough Thiamine HCl [Vitamin B-1*] 100 mg PO BID #60 tablet Ascorbic Acid [Vitamin C*] 500 mg PO TID #30 tablet Zinc Sulfate [Zinc Sulfate*] 220 mg PO DAILY #30 cap Physician Discharge Instructions: OK TO DC IV AND DC HOME FOLLOW-UP WITH PRIMARY CARE PROVIDER IN 1-2 WEEKS Return to the ER if symptoms worsen CALL or TEXT DR. RIVAS AT [phone] IF ANY QUESTIONS REGARDING HOSPITAL STAY. PLEASE CALL THE FLOOR AT [phone] IF ANY MEDICATION OR NURSING QUESTIONS. Diet: AHA Activity: Fall precautions Followup: Jered Delgado, DO [Primary Care Provider] - (call to schedule appointment) Time spent managing pt's care (in minutes): 35
[2020-04-28 15:38] VITALS: O2SAT 90
[2020-04-28 20:28] LABS: White Blood Cell Scan OK (OK)
[2020-04-28 20:29] LABS: Anisocytosis 1+; Blood Morphology Comment NOTED (NOT SEEN); Platelet Estimate INCR
[2020-04-28] MEDS ORDERED: METHYLPREDNISOLONE 40 MG INJ IV SCH (21:00)
[2020-05-01] MEDS ORDERED: IVERMECTIN 3 MG TABLET PO ONE (13:00)
[2020-05-18 04:36] VITALS: BP 139/73; TEMP 97.7
== END 2020-04-28 18:15 | DRG 177 ==
LOC: ER 04:47 → ERHOLD 08:11 → 4TH 04-23 13:49
PROVIDERS: ADMIT Family Medicine; ATTEND Hospitalist
PROC: 5A09457 Assistance with Respiratory Ventilation, 24-96 Consecutive Hours, Continuous Positive Airway Pressure (ICD-10-PCS; principal; 2020-04-26)
DX: U07.1 COVID-19 (principal); J96.21 Acute and chronic respiratory failure with hypoxia; J12.82 Pneumonia due to coronavirus disease 2019; J44.0 Chronic obstructive pulmonary disease with (acute) lower respiratory infection; J44.1 Chronic obstructive pulmonary disease with (acute) exacerbation; I10 Essential (primary) hypertension; I25.10 Atherosclerotic heart disease of native coronary artery without angina pectoris; F41.9 Anxiety disorder, unspecified; G47.00 Insomnia, unspecified; E78.5 Hyperlipidemia, unspecified; Z66 Do not resuscitate; Z88.7 Allergy status to serum and vaccine; Z88.8 Allergy status to other drugs, medicaments and biological substances; Z88.5 Allergy status to narcotic agent; Z79.52 Long term (current) use of systemic steroids; Z79.02 Long term (current) use of antithrombotics/antiplatelets; Z79.899 Other long term (current) drug therapy
CPT/HCPCS: 36415; 71045; 80048; 80053; 80076; 82728; 82805; 82947; 83605; 83735; 83880; 84132; 84145; 84484; 85025; 85379; 86140; 87040; 93005; 93306; 94002; 94640; 94660; 94760; 96365; 96375; 97110; 97116; 97161; 97530; 99285; J1650; J2405; J2920; J2930; J3475; J7512; J7605